=== PATIENT | male | born 1970 | race Two or more races ===

== ENCOUNTER 2020-01-15 08:45 | Inpatient (IN) | payer MEDICARE, MEDICAID ==
[~2020-01-15] VITALS: Ht 182.9 cm; Wt 134.3 kg
[~2020-01-15 08:45] MED LIST: AMPYRA10 MG PO; BACLOFEN10 MG ORAL; DETROL LA4 MG ORAL; GABAPENTIN600 MG ORAL; HYDROCODON-ACE1 EA13; LIPITOR20 MG ORAL; LYRICA50 MG; METHENAMINE HIPP1 GM; NEURONTIN600 MG; OMEPRAZOLE20 M2; UNOBMED
[2020-01-15] MEDS ORDERED: SODIUM CHLORIDE IVLG ONE (09:00)
--- NOTE | 2020-01-15 09:01 | Emergency Room Report ---
History of Present Illness General Chief Complaint: Pain Source: Medical Record Present Illness HPI Disclaimer: Please note that this report is being documented using [employer] technology. This can lead to erroneous entry secondary to incorrect interpretation by the dictating instrument. HPI: 49-year-old male presented by EMS from [facility] due to a fall from a commode. Apparently patient was attempting to use a commode fell to the floor complaining of pain in the left hip. He does have a chronic indwelling Valadez catheter that was pulled at the time of the fall. He denies any nausea vomiting or fevers. Patient was tachycardic on arrival. Patient states he has been unable to eat for the past 2 days. Also complaining of muscle spasm in his upper extremity for the past 24 hours. Denies cough. Denies recent admission to the hospital. PMH: Multiple sclerosis PSH: Reviewed Social Hx: Currently lives in a assisted living Allergies: Coded Allergies: PENICILLINS (Verified Allergy, Severe, Rash, 03/29/14) SULFA (SULFONAMIDE ANTIBIOTICS) (Unverified Allergy, Intermediate, 03/30/14 ) VANCOMYCIN (Verified Allergy, Intermediate, 03/30/14) Nursing Documentation-PMH Past Medical History: No History, Except For Hx Cardiac Problems: No Hx Hypertension: Yes - multiple sclerosis, nystagmus Hx Cancer: No Hx Gastrointestinal Problems: No Hx Multiple Sclerosis: Yes Review of Systems All Other Systems: negative except mentioned in HPI Physical Exam Vital Signs Date Time Temp Pulse Resp B/P (MAP) Pulse Ox O2 Delivery O2 Flow Rate FiO2 01/15/20 08:45 98.2 142 18 135/90 (105) 99 Room Air Sp02 EP Interpretation: reviewed, normal General Appearance: well appearing, no apparent distress Head: normocephalic, atraumatic Eyes: bilateral eye PERRL, bilateral eye EOMI ENT: hearing grossly normal, moist mucus membranes Neck: full range of motion, supple Respiratory: lungs clear, normal breath sounds, no rhonchi, no respiratory distress, no retraction, no wheezing Cardiovascular #1: normal peripheral pulses, no murmur, other - Tachycardic with regular rhythm Gastrointestinal: non tender, soft, non-distended, no guarding Genitourinary: other - Valadez catheter in place with bloody output Neurologic: alert, oriented x3, other - Bilateral upper extremities contracted Skin: normal color, warm/dry Procedures Critical Care Time Critical Care Time Critical care time is made on the patient due to presentation with tachycardia, dehydration, possible sepsis requiring my acute intervention. Critical care time is approximately 35 minutes and excludes procedures Medical Decision Making ER Course Patient presented from halfway facility due to generalized weakness. He reported a fall from his bedside commode. Had no head trauma. He states he had been unable to eat for the past 2 days. He did appear dehydrated on exam. My differential included but not limited to UTI, sepsis, viral syndrome, dehydration, to name a few. On exam patient was tachycardic to the 160s. Initial EKG did appear to be sinus tachycardia. He was febrile on arrival. Patient given Tylenol, ibuprofen and cooling measures. Lactate returned elevated. Urinalysis with blood. Blood cultures were sent. Chest x-ray showed no obvious infiltrate. Broad-spectrum antibiotics were given. Patient' s tachycardia improved in the ER with IV fluids and antipyretics. He was feeling improved. Still tachycardic at time of admission and patient did require admission to telemetry for further observation and work-up. I did not find a specific source for the patient's fever in the ER. EXAM: XR Chest, 1 View CLINICAL HISTORY: PAIN TECHNIQUE: Frontal view of the chest. COMPARISON: Chest x-ray 03/29/14 FINDINGS: Lungs: Hypoventilatory lungs. Bibasilar lung atelectasis. Pleural space: Unremarkable. No pneumothorax. Heart: Unremarkable. No cardiomegaly. Mediastinum: Unremarkable. Bones/joints: Unremarkable. IMPRESSION: Hypoventilatory lungs. Bibasilar lung atelectasis. Laboratory Tests Test 01/15/20 08:25 01/15/20 09:10 01/15/20 11:00 01/15/20 11:50 Urine Color Red Urine Appearance Cloudy Urine pH 6.5 (4.5-8.0) Urine Specific [place] 1.010 (1.005-1.035) Urine Protein 4+ (NEGATIVE) H Urine Glucose (UA) Negative (NEGATIVE) Urine Ketones 1+ (NEGATIVE) H Urine Blood 5+ (NEGATIVE) H Urine Nitrite Negative (NEGATIVE) Urine Bilirubin Negative (NEGATIVE) Urine Urobilinogen Normal MG/DL (0.0-1.0) Urine Leukocyte Esterase Negative (NEGATIVE) Urine RBC Tntc /HPF (0 - 0) H Urine WBC 0-2 /HPF (0 - 0) Urine Squamous Epithelial Cells None /LPF (NONE/OCC) Urine Bacteria Few /HPF (NONE) White Blood Count 2.1 K/UL (4.8-10.8) *L Red Blood Count 5.57 M/UL (4.70-6.10) Hemoglobin 16.7 G/DL (14.2-18.0) Hematocrit 48.8 % (42.0-52.0) Mean Corpuscular Volume 88 FL (80-99) Mean Corpuscular Hemoglobin 30.0 PG (27.0-31.0) Mean Corpuscular Hemoglobin Concent 34.3 G/DL (32.0-36.0) Red Cell Distribution Width 11.9 % (11.6-14.8) Platelet Count 214 K/UL (150-450) Mean Platelet Volume 6.0 FL (6.5-10.1) L Neutrophils (%) (Auto) % (45.0-75.0) Lymphocytes (%) (Auto) % (20.0-45.0) Monocytes (%) (Auto) % (1.0-10.0) Eosinophils (%) (Auto) % (0.0-3.0) Basophils (%) (Auto) % (0.0-2.0) Differential Total Cells Counted 100 Neutrophils % (Manual) 42 % (45-75) L Lymphocytes % (Manual) 52 % (20-45) H Monocytes % (Manual) 6 % (1-10) Eosinophils % (Manual) 0 % (0-3) Basophils % (Manual) 0 % (0-2) Band Neutrophils 0 % (0-8) Platelet Estimate Adequate Platelet Morphology Normal Red Blood Cell Morphology Normal Sodium Level 139 MMOL/L (136-145) Potassium Level 3.4 MMOL/L (3.5-5.1) L Chloride Level 102 MMOL/L (98-107) Carbon Dioxide Level 23 MMOL/L (21-32) Anion Gap 14 mmol/L (5-15) Blood Urea Nitrogen 15 mg/dL (7-18) Creatinine 1.5 MG/DL (0.55-1.30) H Estimate Glomerular Filtration Rate 49.5 mL/min (>60) Glucose Level 97 MG/DL (74-106) Lactic Acid Level 5.30 mmol/L (0.4-2.0) H 2.90 mmol/L (0.66-2.22) H Calcium Level 8.1 MG/DL (8.5-10.1) L Magnesium Level 1.6 MG/DL (1.8-2.4) L Total Bilirubin 0.9 MG/DL (0.2-1.0) Aspartate Amino Transferase (AST) 31 U/L (15-37) Alanine Aminotransferase (ALT) 38 U/L (12-78) Alkaline Phosphatase 118 U/L (46-116) H Total Creatine Kinase 249 U/L (26-308) Troponin I 0.068 ng/mL (0.000-0.056) Total Protein 6.9 G/DL (6.4-8.2) Albumin 2.7 G/DL (3.4-5.0) L Globulin 4.2 g/dL Albumin/Globulin Ratio 0.6 (1.0-2.7) L Test 01/15/20 15:20 Troponin I 0.331 ng/mL (0.000-0.056) Total Protein (PEP) Pending Albumin (PEP) Pending Globulin (PEP) Pending Albumin/Globulin Ratio Pending Pdpxy-7-Jmjpnzpql Pending Lgkzp-7-Bhlhlshqz Pending Beta Globulins Pending Beta Gamma Globulin Pending PEP Abnormal Protein Bands Pending Protein Electrophoresis Interpret Pending HIV (1&2) Antibody Rapid Negative (NEGATIVE) Microbiology Date/Time Source Procedure Growth Status 01/15/20 11:23 Nasal Nares Left - Final Complete 01/15/20 11:23 Nasal Nares Left - Final Complete EKG Diagnostic Results Rate: tachycardiac Other Impression Sinus tachycardia, no ST elevation, Abnormal EKG Last Vital Signs Date Time Temp Pulse Resp B/P (MAP) Pulse Ox O2 Delivery O2 Flow Rate FiO2 01/15/20 08:45 98.2 142 18 135/90 (105) 99 Room Air Status: unchanged Disposition: ADMITTED INPATIENT Condition: Serious Emanuel Llanes M.D. Jan 15, 2020 09:01
[2020-01-15 09:20] VITALS: BP 135/90
[2020-01-15 09:30] LABS: HEMATOCRIT 48.8 % (42.0-52.0); HEMOGLOBIN 16.7 G/DL (14.2-18.0); MEAN CORPUSCULAR VOLUME 88 FL (80-99); PLATELET COUNT 214 K/UL (150-450); RED BLOOD COUNT 5.57 M/UL (4.70-6.10); RED CELL DISTRIBUTION WIDTH 11.9 % (11.6-14.8)
[2020-01-15 09:40] LABS: WHITE BLOOD COUNT 2.1 K/UL (4.8-10.8)
[2020-01-15 09:59] LABS: APPEARANCE,URINE CLOUDY; BILIRUBIN, URINE NEGATIVE (NEGATIVE); COLOR,URINE RED; GLUCOSE, URINE (UA) NEGATIVE (NEGATIVE); KETONES,URINE 1+ (NEGATIVE); LEUKOCYTE ESTERASE ,URINE NEGATIVE (NEGATIVE); NITRITE,URINE NEGATIVE (NEGATIVE); PH,URINE 6.5 (4.5-8.0); PROTEIN,URINE 4+ (NEGATIVE); UROBILINOGEN,URINE NORMAL MG/DL (0.0-1.0)
[2020-01-15] MEDS ORDERED: Acetaminophen 500mg (ES) tab ORAL ONE (10:00)
--- NOTE | 2020-01-15 10:37 | Diagnostic Imaging Report ---
EXAM: XR Chest, 1 View CLINICAL HISTORY: PAIN TECHNIQUE: Frontal view of the chest. COMPARISON: Chest x-ray 03/29/14 FINDINGS: Lungs: Hypoventilatory lungs. Bibasilar lung atelectasis. Pleural space: Unremarkable. No pneumothorax. Heart: Unremarkable. No cardiomegaly. Mediastinum: Unremarkable. Bones/joints: Unremarkable. IMPRESSION: Hypoventilatory lungs. Bibasilar lung atelectasis.
[2020-01-15 11:42] LABS: ANION GAP 14 mmol/L (5-15); BLOOD UREA NITROGEN 15 mg/dL (7-18); CALCIUM 8.1 MG/DL (8.5-10.1); CARBON DIOXIDE 23 MMOL/L (21-32); CHLORIDE 102 MMOL/L (98-107); CREATININE 1.5 MG/DL (0.55-1.30); POTASSIUM 3.4 MMOL/L (3.5-5.1); SODIUM 139 MMOL/L (136-145)
[2020-01-15 11:48] LABS: ALANINE AMINOTRANSFERASE 38 U/L (12-78); ALBUMIN 2.7 G/DL (3.4-5.0); ALBUMIN/GLOBULIN RATIO 0.6 (1.0-2.7); ALKALINE PHOSPHATASE 118 U/L (46-116); ASPARTATE AMINO TRANSFERASE 31 U/L (15-37); BILIRUBIN,TOTAL 0.9 MG/DL (0.2-1.0); CREATINE KINASE 249 U/L (26-308)
[2020-01-15] MEDS ORDERED: Cefepime HCl 1 GM in D5W 55 ML IVPB ONE (12:15)
[2020-01-15] MEDS ORDERED: Aspirin Baby 81mg NG SCH (13:00)
[2020-01-15] MEDS: Lyrica 25mg cap ORAL SCH (18:18)
[2020-01-15 20:00] VITALS: BP 108/58
[2020-01-16] VITALS: BP 102/63
[2020-01-16] MEDS: Cefepime HCl 1 GM in D5W 55 ML IVPB SCH ×3 (00:10→23:04)
[2020-01-16 04:00] VITALS: BP 110/70
--- NOTE | 2020-01-16 05:30 | History and Physical Report ---
DATE OF ADMISSION: 01/15/2020 HISTORY OF PRESENT ILLNESS: The patient is coming here and admitted for leukopenia, azotemia, borderline elevated troponin, fever, dehydration, and rule out sepsis. He apparently has history of multiple sclerosis, presented with fever and tachycardia. Antibiotics were given in the ER. The patient fell from his scooter, was feeling weak and pain in the thighs and also has chronic back pain. Denies nausea, vomiting, or diarrhea. Denies cough. Denies shortness of breath. PAST MEDICAL HISTORY: Significant for multiple sclerosis, urinary incontinence, history of hepatic hemangioma, fatty liver, history of thrombocytopenia, and history of chronic back pain. PAST SURGICAL HISTORY: Abdominal surgery. SOCIAL HISTORY: History of smoking. History of alcohol abuse. Denies history of drug abuse. ALLERGIES: Sulfa and penicillin. MEDICATIONS: Ampyra, baclofen, gabapentin, Lyrica, and Detrol LA. FAMILY HISTORY: Noncontributory. REVIEW OF SYSTEMS: HEENT: Denies headaches. RESPIRATORY: Denies shortness of breath. Denies cough. CARDIOVASCULAR: Denies chest pain. Denies orthopnea. Extensive worse chronic back pain. GASTROINTESTINAL: Denies abdominal pain. Denies nausea, vomiting, or diarrhea. EXTREMITIES: Reports thigh pain and bilateral lower extremity pain. CENTRAL NERVOUS SYSTEM: Denies change in speech pattern. PHYSICAL EXAMINATION: VITAL SIGNS: Temperature is 104 degrees and blood pressure 109/88. HEENT: PERRLA. NECK: Supple. No lymphadenopathy. CHEST: Clear to auscultation. CARDIOVASCULAR: Tachycardiac. GASTROINTESTINAL: Soft, nontender, and nondistended. No organomegaly. EXTREMITIES: No edema. Moves all four extremities. Does have lower extremity edema and lower extremity weakness, which is chronic. Reflexes equal on both sides. LABORATORY DATA: WBC of 2.1, hemoglobin 16.7, and platelets of 214,000. Troponin 0.068. ASSESSMENT AND PLAN: Fever and tachycardia, most likely due to fever, dehydration, rule out sepsis, history of MS, tachycardia, leukopenia, elevated troponin, and azotemia, most likely due to dehydration. I have asked Dr. Casey Roberts as well as Dr. Guillaume, Dr. Sd Ponce, and Dr. Torres to see the patient for the above-mentioned diagnoses and symptoms and abnormalities. We will monitor the patient very closely in the telemetric unit and we will repeat the troponin. Whitney Fontanez M.D. DR: Wen JOB#: [id number] CC:
[2020-01-16 08:00] VITALS: BP 133/64
[2020-01-16 08:05] LABS: HEMATOCRIT 43.7 % (42.0-52.0); HEMOGLOBIN 15.3 G/DL (14.2-18.0); MEAN CORPUSCULAR VOLUME 86 FL (80-99); PLATELET COUNT 164 K/UL (150-450); RED BLOOD COUNT 5.08 M/UL (4.70-6.10); RED CELL DISTRIBUTION WIDTH 11.6 % (11.6-14.8); WHITE BLOOD COUNT 16.8 K/UL (4.8-10.8)
[2020-01-16 08:24] LABS: ANION GAP 13 mmol/L (5-15); BLOOD UREA NITROGEN 13 mg/dL (7-18); CALCIUM 8.6 MG/DL (8.5-10.1); CARBON DIOXIDE 22 MMOL/L (21-32); CHLORIDE 102 MMOL/L (98-107); CREATININE 1.1 MG/DL (0.55-1.30); POTASSIUM 3.6 MMOL/L (3.5-5.1); SODIUM 137 MMOL/L (136-145)
[2020-01-16] MEDS: Lyrica 25mg cap ORAL SCH ×3 (09:35→18:11)
[2020-01-16 10:19] LABS: ALANINE AMINOTRANSFERASE 70 U/L (12-78); ALBUMIN 2.6 G/DL (3.4-5.0); ALKALINE PHOSPHATASE 83 U/L (46-116); ASPARTATE AMINO TRANSFERASE 103 U/L (15-37); BILIRUBIN,DIRECT 0.5 MG/DL (0.0-0.3); BILIRUBIN,TOTAL 1.1 MG/DL (0.2-1.0)
--- NOTE | 2020-01-16 10:54 | General Progress Note ---
Assessment/Plan Problem List: (1) MS (multiple sclerosis) ICD Codes: G35 - MS (multiple sclerosis) SNOMED: 95178541 (2) Leukocytosis ICD Codes: D72.829 - Leukocytosis SNOMED: 414944793 (3) Generalized weakness ICD Codes: R53.1 - Generalized weakness SNOMED: 24281019 (4) Fatty liver ICD Codes: K76.0 - Fatty liver SNOMED: 223166838 (5) Tachycardia ICD Codes: R00.0 - Tachycardia, unspecified SNOMED: 1028949 (6) Severe dehydration ICD Codes: E86.0 - Dehydration SNOMED: 033004692 (7) Cellulitis of left leg ICD Codes: L03.116 - Cellulitis of left leg SNOMED: 873269123 Status: progressing Assessment/Plan: afebrile nac sepsis cellulitis MS reviewed chart and labs Subjective ROS Limited/Unobtainable: Yes Allergies: Coded Allergies: PENICILLINS (Verified Allergy, Severe, Rash, 03/29/14) SULFA (SULFONAMIDE ANTIBIOTICS) (Unverified Allergy, Intermediate, 03/30/14 ) VANCOMYCIN (Verified Allergy, Intermediate, 03/30/14) Objective Last 24 Hour Vital Signs Date Time Temp Pulse Resp B/P (MAP) Pulse Ox O2 Delivery O2 Flow Rate FiO2 01/16/20 08:37 Room Air 01/16/20 08:00 113 01/16/20 04:00 105 01/16/20 03:44 97.0 01/16/20 00:00 110 01/15/20 21:00 Room Air 01/15/20 20:00 104 01/15/20 20:00 97.0 105 17 108/58 (75) 95 01/15/20 16:55 Room Air 01/15/20 15:00 Room Air 01/15/20 13:35 98.0 108 18 109/88 95 Room Air 01/15/20 11:24 104.0 Intake and Output 01/15/20 01/16/20 19:00 07:00 Intake Total 3655 ml 120 ml Output Total 1400 ml 500 ml Balance 2255 ml -380 ml Intake Oral 120 ml IV Total 3655 ml Output Urine Total 1400 ml 500 ml # Bowel Movements 4 2 Laboratory Tests 01/15/20 11:00: Sodium Level 139, Potassium Level 3.4L, Chloride Level 102, Carbon Dioxide Level 23, Anion Gap 14, Blood Urea Nitrogen 15, Creatinine 1.5H, Estimat Glomerular Filtration Rate 49.5, Glucose Level 97, Lactic Acid Level 5.30H, Calcium Level 8.1L, Magnesium Level 1.6L, Total Bilirubin 0.9, Aspartate Amino Transf (AST/SGOT) 31, Alanine Aminotransferase (ALT/SGPT) 38, Alkaline Phosphatase 118H, Total Creatine Kinase 249, Troponin I 0.068H, Total Protein 6.9, Albumin 2.7L, Globulin 4.2, Albumin/Globulin Ratio 0.6L 01/15/20 11:50: Lactic Acid Level 2.90H 01/15/20 15:20: Troponin I 0.331H, Albumin/Globulin Ratio [Pending], Total Protein (PEP) [ Pending], Albumin (PEP) [Pending], Globulin (PEP) [Pending], Eenul-4-Yqamwbdqx [ Pending], Gotfk-5-Fulhvdyjh [Pending], Beta Globulins [Pending], Beta Gamma Globulin [Pending], PEP Abnormal Protein Bands [Pending], Protein Electrophoresis Interpret [Pending], HIV (1&2) Antibody Rapid Negative 01/16/20 06:50: Sodium Level 137, Potassium Level 3.6, Chloride Level 102, Carbon Dioxide Level 22, Anion Gap 13, Blood Urea Nitrogen 13, Creatinine 1.1, Estimat Glomerular Filtration Rate > 60, Glucose Level 87, Calcium Level 8.6, Magnesium Level 1.6L , Total Bilirubin 1.1H, Aspartate Amino Transf (AST/SGOT) 103H, Alanine Aminotransferase (ALT/SGPT) 70, Alkaline Phosphatase 83, Troponin I 0.094H, Total Protein 7.0, Albumin 2.6L, White Blood Count 16.8#H, Red Blood Count 5.08 , Hemoglobin 15.3, Hematocrit 43.7, Mean Corpuscular Volume 86, Mean Corpuscular Hemoglobin 30.1, Mean Corpuscular Hemoglobin Concent 35.0, Red Cell Distribution Width 11.6, Platelet Count 164, Mean Platelet Volume 7.5, Neutrophils (%) (Auto) , Lymphocytes (%) (Auto) , Monocytes (%) (Auto) , Eosinophils (%) (Auto) , Basophils (%) (Auto) , Differential Total Cells Counted 100, Neutrophils % (Manual) 77H, Lymphocytes % (Manual) 4L, Monocytes % (Manual) 5, Eosinophils % (Manual) 0, Basophils % (Manual) 0, Band Neutrophils 14H, Platelet Estimate Adequate, Platelet Morphology Normal, Hemoglobin A1c 5.7 , Uric Acid 8.2H, Phosphorus Level 3.0, Direct Bilirubin 0.5H Height (Feet): 6 Height (Inches): 0.00 Weight (Pounds): 265 Cardiovascular: normal rate Respiratory/Chest: lungs clear Abdomen: soft Whitney Fontanez MD Jan 16, 2020 10:54
--- NOTE | 2020-01-16 11:01 | Diagnostic Imaging Report ---
Indication: Abdominal pain Technique: Grayscale and duplex Doppler imaging of the abdomen performed. Comparison: None Findings: The liver is echogenic. Doppler interrogation of the main portal vein shows patency with hepatopedal, monophasic flow. There is no biliary ductal dilatation identified. Gallstones noted. There is mild pericholecystic fluid. Sonographic Lugo's is negative per technologist. CBD is 4.3 mm. Spleen is borderline enlarged measuring close to 13 cm. There is a echogenic focus measuring 7 mm within the spleen possibly hemangioma.. There demonstrated part of the pancreas, aorta and IVC show no definite abnormalities although largely obscured. Both kidneys appear unremarkable. There is no hydronephrosis. IMPRESSION: Hepatosplenomegaly. Cholelithiasis with minimal pericholecystic fluid. Correlate clinically for cholecystitis. Echogenic focus in the spleen possibly a hemangioma.
--- NOTE | 2020-01-16 11:38 | Cardiac Electrophysiology PN ---
Subjective Subjective [id number] Objective Last 24 Hour Vital Signs Date Time Temp Pulse Resp B/P (MAP) Pulse Ox O2 Delivery O2 Flow Rate FiO2 01/16/20 08:37 Room Air 01/16/20 08:00 113 01/16/20 04:00 105 01/16/20 03:44 97.0 01/16/20 00:00 110 01/15/20 21:00 Room Air 01/15/20 20:00 104 01/15/20 20:00 97.0 105 17 108/58 (75) 95 01/15/20 16:55 Room Air 01/15/20 15:00 Room Air 01/15/20 13:35 98.0 108 18 109/88 95 Room Air Intake and Output 01/15/20 01/16/20 19:00 07:00 Intake Total 3655 ml 120 ml Output Total 1400 ml 500 ml Balance 2255 ml -380 ml Intake Oral 120 ml IV Total 3655 ml Output Urine Total 1400 ml 500 ml # Bowel Movements 4 2 Laboratory Tests Test 01/15/20 11:50 01/15/20 15:20 01/16/20 06:50 Lactic Acid Level 2.90 mmol/L (0.66-2.22) H Troponin I 0.331 ng/mL (0.000-0.056) 0.094 ng/mL (0.000-0.056) Total Protein (PEP) Pending Albumin (PEP) Pending Globulin (PEP) Pending Albumin/Globulin Ratio Pending Qmggb-7-Vnuatwbfv Pending Kfszf-7-Nxbyviozv Pending Beta Globulins Pending Beta Gamma Globulin Pending PEP Abnormal Protein Bands Pending Protein Electrophoresis Interpret Pending HIV (1&2) Antibody Rapid Negative (NEGATIVE) White Blood Count 16.8 K/UL (4.8-10.8) #H Red Blood Count 5.08 M/UL (4.70-6.10) Hemoglobin 15.3 G/DL (14.2-18.0) Hematocrit 43.7 % (42.0-52.0) Mean Corpuscular Volume 86 FL (80-99) Mean Corpuscular Hemoglobin 30.1 PG (27.0-31.0) Mean Corpuscular Hemoglobin Concent 35.0 G/DL (32.0-36.0) Red Cell Distribution Width 11.6 % (11.6-14.8) Platelet Count 164 K/UL (150-450) Mean Platelet Volume 7.5 FL (6.5-10.1) Neutrophils (%) (Auto) % (45.0-75.0) Lymphocytes (%) (Auto) % (20.0-45.0) Monocytes (%) (Auto) % (1.0-10.0) Eosinophils (%) (Auto) % (0.0-3.0) Basophils (%) (Auto) % (0.0-2.0) Differential Total Cells Counted 100 Neutrophils % (Manual) 77 % (45-75) H Lymphocytes % (Manual) 4 % (20-45) L Monocytes % (Manual) 5 % (1-10) Eosinophils % (Manual) 0 % (0-3) Basophils % (Manual) 0 % (0-2) Band Neutrophils 14 % (0-8) H Platelet Estimate Adequate Platelet Morphology Normal Sodium Level 137 MMOL/L (136-145) Potassium Level 3.6 MMOL/L (3.5-5.1) Chloride Level 102 MMOL/L (98-107) Carbon Dioxide Level 22 MMOL/L (21-32) Anion Gap 13 mmol/L (5-15) Blood Urea Nitrogen 13 mg/dL (7-18) Creatinine 1.1 MG/DL (0.55-1.30) Estimat Glomerular Filtration Rate > 60 mL/min (>60) Glucose Level 87 MG/DL (74-106) Hemoglobin A1c 5.7 % (4.3-6.0) Uric Acid 8.2 MG/DL (2.6-7.2) H Calcium Level 8.6 MG/DL (8.5-10.1) Phosphorus Level 3.0 MG/DL (2.5-4.9) Magnesium Level 1.6 MG/DL (1.8-2.4) L Total Bilirubin 1.1 MG/DL (0.2-1.0) H Direct Bilirubin 0.5 MG/DL (0.0-0.3) H Aspartate Amino Transf (AST/SGOT) 103 U/L (15-37) H Alanine Aminotransferase (ALT/SGPT) 70 U/L (12-78) Alkaline Phosphatase 83 U/L (46-116) Total Protein 7.0 G/DL (6.4-8.2) Albumin 2.6 G/DL (3.4-5.0) L Microbiology Date/Time Source Procedure Growth Status 01/15/20 09:10 Blood Blood Culture - Preliminary Resulted 01/15/20 09:10 Blood Blood Culture - Preliminary Resulted 01/15/20 11:23 Nasal Nares Left - Final Complete 01/15/20 11:23 Nasal Nares Left - Final Complete 01/15/20 11:26 Rectum Received Delonte Torres MD Jan 16, 2020 11:38
[2020-01-16 12:00] VITALS: BP 118/68
[2020-01-16] MEDS ORDERED: Levofloxacin 750mg tab ORAL SCH (13:45)
[2020-01-16 16:00] VITALS: BP 102/65
--- NOTE | 2020-01-16 17:15 | Consultation ---
Consult Note Consult Note I was asked to evaluate the patient at the request of Dr. Blackman for proteinuria Patient seen in her room 207 Patient denies any history of kidney problem Reason for referring to emergency room was pain At the emergency room HPI: 49-year-old male presented by EMS from [facility] due to a fall from a commode. Apparently patient was attempting to use a commode fell to the floor complaining of pain in the left hip. He does have a chronic indwelling Valadez catheter that was pulled at the time of the fall. He denies any nausea vomiting or fevers. Patient was tachycardic on arrival. Patient states he has been unable to eat for the past 2 days. Also complaining of muscle spasm in his upper extremity for the past 24 hours. Denies cough. Denies recent admission to the hospital. PMH: Multiple sclerosis Currently lives in a assisted living Allergies: PENICILLINS (Verified Allergy, Severe, Rash, 03/29/14) SULFA (SULFONAMIDE ANTIBIOTICS) (Unverified Allergy, Intermediate, 03/30/14 ) VANCOMYCIN (Verified Allergy, Intermediate, 03/30/14) Past Medical History: No History, Except For Hx Hypertension: Yes - multiple sclerosis, nystagmus Hx Multiple Sclerosis: Yes . Assessment/Plan Proteinuria and hypoalbuminemia , will rule out nephrotic syndrome Obese with BMI of 35.9 Multiple sclerosis Chronic Valadez catheter Multiple drug allergies to vancomycin sulfa and penicillin History of hepatic hemangioma Fatty liver Chronic pain History of thrombocytopenia Elevated troponin I Plan: Obtain 24-hour urine for total protein Correct electrolytes Per cardiology advice Monitor liver function tests, TSH Per orders Tom Guillaume MD Jan 16, 2020 17:15
[2020-01-16] MEDS: Aspirin Baby 81mg ORAL SCH (17:30)
[2020-01-16] MEDS: Docusate 100mg cap ORAL SCH (18:11)
[2020-01-16] MEDS ORDERED: Docusate 100mg cap ORAL SCH (19:45)
[2020-01-16 20:00] VITALS: BP 111/79
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
[2020-01-16] MEDS: Atorvastatin 20mg tab ORAL SCH (21:07)
[2020-01-16] MEDS: Bisacodyl EC 5mg tab ORAL SCH (21:07)
[2020-01-16] MEDS: Metoprolol Tartrate 12.5mg TAB ORAL SCH (21:08)
--- NOTE | 2020-01-16 22:15 | Consultation ---
DATE OF CONSULTATION: 01/16/2020 INFECTIOUS DISEASE CONSULTATION CONSULTING PHYSICIAN: Sd Ponce M.D. PRIMARY ATTENDING PHYSICIAN: Whitney Fontanez M.D. REASON FOR CONSULTATION: Gram-negative sepsis. HISTORY OF PRESENT ILLNESS: This is a 49-year-old white male admitted yesterday from home. According to ER doctor, had a fall from bedside commode, had left hip pain. He had a Valadez catheter placement. Valadez catheter came out when the patient fell. He was tachycardic, had decrease in white cell count and leukopenia. Recently, he had decreased appetite in the last two days. He had a temperature of 104, tachycardia with heart rate up to 150. PAST MEDICAL HISTORY: Multiple sclerosis. The patient is wheelchair bound, has weakness in the lower extremity and right upper extremity, and obesity. PAST SURGICAL HISTORY: Has a history of abdominal surgery many years ago. ALLERGIES: Allergic to sulfa and vancomycin. Although it is written in the patient's chart the patient is allergic to penicillin, denies allergy to penicillin. MEDICATIONS: Metoprolol, atorvastatin, cefepime, gabapentin, Lyrica, Tylenol. SOCIAL HISTORY: Lives at home. Single. Denies alcohol and denies smoking and drug abuse. He has a history of alcohol abuse. REVIEW OF SYSTEMS: No fever, no chills today. No coughing. No shortness of breath. Had pain in the right foot. PHYSICAL EXAMINATION: VITAL SIGNS: Temperature 97, pulse 113, blood pressure is 108/58. GENERAL APPEARANCE: Obese, no acute distress. HEAD AND NECK: [place] conjunctivae. HEART: Tachycardic. LUNGS: Clear. ABDOMEN: Soft. GENITOURINARY: Had Valadez catheter. EXTREMITIES: Have mild periankle edema, has footdrop. SKIN: Has some bruise in the right foot. No open wound. LABORATORY AND DIAGNOSTIC DATA: WBC today 16.8, hemoglobin 15.3, hematocrit 43.7, and platelets is 164,000. Lactic acid is 2.9. Sodium 139, potassium 3.4, chloride 102, bicarbonate 23, BUN 15, creatinine 1.5 at the time of admission and today is 1.1. Troponin was elevated, the highest level was 0.31. Abdominal ultrasound showed hepatosplenomegaly, cholelithiasis with pericholecystic fluid correlates for cholecystitis. Echogenic focus in the spleen, possibly an hemangioma. Chest x-ray, hypoventilatory bibasilar lung atelectasis. Urine rbc's too numerous to count. Blood culture x2, gram-negative rods. Influenza A and B were negative. IMPRESSION: Gram-negative sepsis, may have UTI. Has cholelithiasis, we will try to rule out cholecystitis and acute renal failure that is improving. Multiple sclerosis, hepatosplenomegaly. He had elevated troponin. RECOMMENDATION: Continue cefepime, give a dose of Levaquin. We will follow up the cultures. At the end of my exam, I thank Dr. Fontanez for involving me in the care of this patient. Sd Ponce M.D. DR: DAVID JOB#: [id number] CC: [email or web address]
[2020-01-17] VITALS: BP 106/64
[2020-01-17 04:00] VITALS: BP 116/68
--- NOTE | 2020-01-17 06:21 | Hematology/Onc Progress Note ---
Assessment/Plan Assessment/Plan Assessment/Plan # Leukopenia -- multiple etiologies could be related to underlying liver disease , medication-induced, infection versus viral syndrome --> peripheral smear has been ordered and does not show significant abnormalities --> Medications have been reviewed --> Continue to monitor for improvement, trend cbc --> Hep panel and HIV have been ordered--> NEG --> US abd ordered to r/o cirrhosis and hepatosplenomegaly --> shows hsm --> reverse isolation if ANC is <2000 --> Give neupogen if ANC <1000 (WAS GIVEN x1 dose) # History of thrombocytopenia --> now has improved, plt is at nml range # Proteinuria and hypoalbuminemia , will rule out nephrotic syndrome --> per cards # Obese with BMI of 35.9 --> recommend lifestyle changes # Multiple sclerosis --> as per neuro # Elevated trop --> downtrended --> as per cards # Chronic Valadez catheter # Multiple drug allergies to vancomycin sulfa and penicillin # History of hepatic hemangioma # Fatty liver # Chronic pain The timing of this note does not necessarily reflect the time of the patient was seen. Greatly appreciate consultation. Subjective Constitutional: Denies: no symptoms, chills, fever, malaise, weakness, other HEENT: Denies: no symptoms, eye pain, blurred vision, tearing, double vision, ear pain, ear discharge, nose pain, nose congestion, throat pain, throat swelling, mouth pain, mouth swelling, other Cardiovascular: Denies: no symptoms, chest pain, edema, irregular heart rate, lightheadedness, palpitations, syncope, other Respiratory: Denies: no symptoms, cough, shortness of breath, SOB with excertion, SOB at rest, sputum, wheezing, other Gastrointestinal/Abdominal: Denies: no symptoms, abdomen distended, abdominal pain, black stools, tarry stools, blood in stool, constipated, diarrhea, difficulty swallowing, nausea, poor appetite, poor fluid intake, rectal bleeding , vomiting, other Genitourinary: Denies: no symptoms, burning, discharge, frequency, flank pain, hematuria, incontinence, pain, urgency, other Endocrine: Denies: no symptoms, excessive sweating, flushing, intolerance to cold, intolerance to heat, increased hunger, increased thirst, increased urine, unexplained weight gain, unexplained weight loss, other Hematologic/Lymphatic: Denies: no symptoms, anemia, easy bleeding, easy bruising, adenopathy, other Allergies: Coded Allergies: PENICILLINS (Verified Allergy, Severe, Rash, 03/29/14) SULFA (SULFONAMIDE ANTIBIOTICS) (Unverified Allergy, Intermediate, 03/30/14 ) VANCOMYCIN (Verified Allergy, Intermediate, 03/30/14) Subjective 01/16: no events, labs noted, no bleeding or chills, trop downtrending, cbc pending Objective Objective Current Medications Medications (Trade) Dose Ordered Sig/Vicky Route PRN Reason Start Time Stop Time Status Last Admin Dose Admin Acetaminophen (Tylenol) 650 mg Q4H PRN ORAL Mild Pain/Temp > 100.5 01/15/20 14:00 02/14/20 13:59 01/16/20 03:14 Aspirin (ASA) 81 mg DAILY ORAL 01/16/20 17:30 03/01/20 17:29 01/16/20 17:30 Atorvastatin Calcium (Lipitor) 20 mg BEDTIME ORAL 01/16/20 21:00 02/15/20 20:59 01/16/20 21:07 Baclofen (Lioresal) 10 mg THREE TIMES A DAY ORAL 01/15/20 18:00 02/14/20 17:59 01/16/20 18:11 Bisacodyl (Dulcolax) 10 mg DAILY ORAL 01/16/20 20:00 02/15/20 19:59 01/16/20 21:07 Cefepime HCl 1 gm/ Dextrose 55 ml @ 110 mls/hr Q12H IVPB 01/16/20 00:00 01/23/20 00:00 01/16/20 23:04 Docusate Sodium (Colace) 100 mg THREE TIMES A DAY ORAL 01/16/20 18:00 02/15/20 17:59 01/16/20 18:11 Gabapentin (Neurontin) 600 mg THREE TIMES A DAY ORAL 01/15/20 18:00 02/14/20 17:59 01/16/20 18:11 Metoprolol Tartrate (Lopressor) 12.5 mg Q12HR ORAL 01/16/20 21:00 02/15/20 20:59 01/16/20 21:08 Pantoprazole (Protonix) 40 mg EVERY 12 HOURS ORAL 3/9/20 21:00 02/15/20 20:59 01/16/20 21:07 Pregabalin (Lyrica) 25 mg THREE TIMES A DAY ORAL 01/15/20 18:00 02/14/20 17:59 01/16/20 18:11 Sennosides (Senokot) 8.6 mg DAILY ORAL 01/17/20 09:00 02/16/20 08:59 Last 24 Hour Vital Signs Date Time Temp Pulse Resp B/P (MAP) Pulse Ox O2 Delivery O2 Flow Rate FiO2 01/17/20 04:00 98.2 111 20 116/68 (84) 94 01/17/20 04:00 109 01/17/20 00:00 99 01/17/20 00:00 98.4 103 20 106/64 (78) 94 01/16/20 21:08 113 111/79 01/16/20 21:00 Room Air 01/16/20 20:00 116 01/16/20 20:00 98.8 113 20 111/79 (90) 94 01/16/20 16:00 114 01/16/20 16:00 97.5 115 20 102/65 (77) 95 01/16/20 12:00 113 01/16/20 12:00 97.9 107 20 118/68 (85) 95 01/16/20 08:37 Room Air 01/16/20 08:00 113 01/16/20 08:00 97.3 107 20 133/64 (87) 93 01/16/20 04:00 105 01/16/20 04:00 97.5 105 18 110/70 (83) 95 01/16/20 03:44 97.0 01/16/20 00:00 97.7 109 18 102/63 (76) 93 01/16/20 00:00 110 01/15/20 21:00 Room Air 01/15/20 20:00 104 01/15/20 20:00 97.0 105 17 108/58 (75) 95 01/15/20 16:55 Room Air 01/15/20 15:00 Room Air 01/15/20 13:35 98.0 108 18 109/88 95 Room Air 01/15/20 11:24 104.0 01/15/20 10:35 104.0 01/15/20 09:21 150 18 Room Air 01/15/20 09:20 98.2 150 18 135/90 99 Room Air 01/15/20 08:45 98.2 142 18 135/90 (105) 99 Room Air Intake and Output 01/16/20 01/17/20 19:00 07:00 Intake Total 880 ml Output Total 1900 ml Balance -1020 ml Intake Oral 880 ml Output Urine Total 1900 ml # Bowel Movements 2 1 Labs Test 01/15/20 08:25 01/15/20 09:10 01/15/20 11:00 01/15/20 11:50 Urine Color Red Urine Appearance Cloudy Urine pH 6.5 (4.5-8.0) Urine Specific [place] 1.010 (1.005-1.035) Urine Protein 4+ (NEGATIVE) Urine Glucose (UA) Negative (NEGATIVE) Urine Ketones 1+ (NEGATIVE) Urine Blood 5+ (NEGATIVE) Urine Nitrite Negative (NEGATIVE) Urine Bilirubin Negative (NEGATIVE) Urine Urobilinogen Normal MG/DL (0.0-1.0) Urine Leukocyte Esterase Negative (NEGATIVE) Urine RBC Tntc /HPF (0 - 0) Urine WBC 0-2 /HPF (0 - 0) Urine Squamous Epithelial Cells None /LPF (NONE/OCC) Urine Bacteria Few /HPF (NONE) White Blood Count 2.1 K/UL (4.8-10.8) Red Blood Count 5.57 M/UL (4.70-6.10) Hemoglobin 16.7 G/DL (14.2-18.0) Hematocrit 48.8 % (42.0-52.0) Mean Corpuscular Volume 88 FL (80-99) Mean Corpuscular Hemoglobin 30.0 PG (27.0-31.0) Mean Corpuscular Hemoglobin Concent 34.3 G/DL (32.0-36.0) Red Cell Distribution Width 11.9 % (11.6-14.8) Platelet Count 214 K/UL (150-450) Mean Platelet Volume 6.0 FL (6.5-10.1) Neutrophils (%) (Auto) % (45.0-75.0) Lymphocytes (%) (Auto) % (20.0-45.0) Monocytes (%) (Auto) % (1.0-10.0) Eosinophils (%) (Auto) % (0.0-3.0) Basophils (%) (Auto) % (0.0-2.0) Differential Total Cells Counted 100 Neutrophils % (Manual) 42 % (45-75) Lymphocytes % (Manual) 52 % (20-45) Monocytes % (Manual) 6 % (1-10) Eosinophils % (Manual) 0 % (0-3) Basophils % (Manual) 0 % (0-2) Band Neutrophils 0 % (0-8) Platelet Estimate Adequate Platelet Morphology Normal Red Blood Cell Morphology Normal Sodium Level 139 MMOL/L (136-145) Potassium Level 3.4 MMOL/L (3.5-5.1) Chloride Level 102 MMOL/L (98-107) Carbon Dioxide Level 23 MMOL/L (21-32) Anion Gap 14 mmol/L (5-15) Blood Urea Nitrogen 15 mg/dL (7-18) Creatinine 1.5 MG/DL (0.55-1.30) Estimat Glomerular Filtration Rate 49.5 mL/min (>60) Glucose Level 97 MG/DL (74-106) Lactic Acid Level 5.30 mmol/L (0.4-2.0) 2.90 mmol/L (0.66-2.22) Calcium Level 8.1 MG/DL (8.5-10.1) Magnesium Level 1.6 MG/DL (1.8-2.4) Total Bilirubin 0.9 MG/DL (0.2-1.0) Aspartate Amino Transf (AST/SGOT) 31 U/L (15-37) Alanine Aminotransferase (ALT/SGPT) 38 U/L (12-78) Alkaline Phosphatase 118 U/L (46-116) Total Creatine Kinase 249 U/L (26-308) Troponin I 0.068 ng/mL (0.000-0.056) Total Protein 6.9 G/DL (6.4-8.2) Albumin 2.7 G/DL (3.4-5.0) Globulin 4.2 g/dL Albumin/Globulin Ratio 0.6 (1.0-2.7) Test 01/15/20 15:20 01/16/20 06:50 01/16/20 15:45 Troponin I 0.331 ng/mL (0.000-0.056) 0.094 ng/mL (0.000-0.056) HIV (1&2) Antibody Rapid Negative (NEGATIVE) White Blood Count 16.8 K/UL (4.8-10.8) Red Blood Count 5.08 M/UL (4.70-6.10) Hemoglobin 15.3 G/DL (14.2-18.0) Hematocrit 43.7 % (42.0-52.0) Mean Corpuscular Volume 86 FL (80-99) Mean Corpuscular Hemoglobin 30.1 PG (27.0-31.0) Mean Corpuscular Hemoglobin Concent 35.0 G/DL (32.0-36.0) Red Cell Distribution Width 11.6 % (11.6-14.8) Platelet Count 164 K/UL (150-450) Mean Platelet Volume 7.5 FL (6.5-10.1) Neutrophils (%) (Auto) % (45.0-75.0) Lymphocytes (%) (Auto) % (20.0-45.0) Monocytes (%) (Auto) % (1.0-10.0) Eosinophils (%) (Auto) % (0.0-3.0) Basophils (%) (Auto) % (0.0-2.0) Differential Total Cells Counted 100 Neutrophils % (Manual) 77 % (45-75) Lymphocytes % (Manual) 4 % (20-45) Monocytes % (Manual) 5 % (1-10) Eosinophils % (Manual) 0 % (0-3) Basophils % (Manual) 0 % (0-2) Band Neutrophils 14 % (0-8) Platelet Estimate Adequate Platelet Morphology Normal Sodium Level 137 MMOL/L (136-145) Potassium Level 3.6 MMOL/L (3.5-5.1) Chloride Level 102 MMOL/L (98-107) Carbon Dioxide Level 22 MMOL/L (21-32) Anion Gap 13 mmol/L (5-15) Blood Urea Nitrogen 13 mg/dL (7-18) Creatinine 1.1 MG/DL (0.55-1.30) Estimat Glomerular Filtration Rate > 60 mL/min (>60) Glucose Level 87 MG/DL (74-106) Hemoglobin A1c 5.7 % (4.3-6.0) Uric Acid 8.2 MG/DL (2.6-7.2) Calcium Level 8.6 MG/DL (8.5-10.1) Phosphorus Level 3.0 MG/DL (2.5-4.9) Magnesium Level 1.6 MG/DL (1.8-2.4) Total Bilirubin 1.1 MG/DL (0.2-1.0) Direct Bilirubin 0.5 MG/DL (0.0-0.3) Aspartate Amino Transf (AST/SGOT) 103 U/L (15-37) Alanine Aminotransferase (ALT/SGPT) 70 U/L (12-78) Alkaline Phosphatase 83 U/L (46-116) Total Protein 7.0 G/DL (6.4-8.2) Albumin 2.6 G/DL (3.4-5.0) Urine Opiates Screen Negative (NEGATIVE) Urine Barbiturates Screen Negative (NEGATIVE) Phencyclidine (PCP) Screen Negative (NEGATIVE) Urine Amphetamines Screen Negative (NEGATIVE) Urine Benzodiazepines Screen Negative (NEGATIVE) Urine Cocaine Screen Negative (NEGATIVE) Urine Marijuana (THC) Screen Negative (NEGATIVE) Height (Feet): 6 Height (Inches): 0.00 Weight (Pounds): 265 Objective Physical Exam: Vitals: reviewed General: NAD HEENT: nc, at Neck: supple Chest: clear breath sounds bilaterally Cardiovascular: RRR, no s3, s4 Abdomen: soft, nontender, nd Extremities: no cce, normal range of motion, upper ext contracted Neuro: alert and oriented Casey Roberts MD Jan 17, 2020 06:21
[2020-01-17 07:24] LABS: HEMATOCRIT 42.5 % (42.0-52.0); HEMOGLOBIN 14.9 G/DL (14.2-18.0); MEAN CORPUSCULAR VOLUME 86 FL (80-99); PLATELET COUNT 151 K/UL (150-450); RED BLOOD COUNT 4.92 M/UL (4.70-6.10); RED CELL DISTRIBUTION WIDTH 11.8 % (11.6-14.8); WHITE BLOOD COUNT 17.3 K/UL (4.8-10.8)
--- NOTE | 2020-01-17 07:30 | Consultation ---
DATE OF CONSULTATION: 01/16/2020 CARDIOLOGY CONSULTATION CONSULTING PHYSICIAN: Delonte Torres M.D. REFERRING PHYSICIAN: Whitney Fontanez M.D. REASON FOR CONSULTATION: Questionable syncope in a patient with hypertension and multiple sclerosis. HISTORY OF PRESENT ILLNESS: The patient is a 49-year-old gentleman with history of hypertension and multiple sclerosis, was brought in from [facility] after he had a fall from the commode. The patient apparently was trying to use the commode and fell to the floor complaining of pain in the left hip. He has a chronic indwelling catheter that was pulled at the time of fall and had some hematuria. The patient was tachycardic on arrival to the emergency room. Cardiology consultation was requested for further evaluation and management. His 12-lead EKG showed tachycardia at 146 beats per minute. REVIEW OF SYSTEMS: Negative other than what was mentioned in the history of present illness. PAST MEDICAL HISTORY: As mentioned above. FAMILY HISTORY: Noncontributory. SOCIAL HISTORY: He lives in a [employer] [facility]. Does not smoke or drink alcohol. PHYSICAL EXAMINATION: VITAL SIGNS: Showed blood pressure of 110/58, pulse 105, respirations 18, and temperature 97. Initial temperature was 104. HEAD AND NECK: Showed no JVD. LUNGS: Clear. CARDIOVASCULAR: Shows regular S1 and S2 with no gallop or murmur. ABDOMEN: Soft. EXTREMITIES: 1+ pitting edema. His right arm is paralyzed. LABORATORY AND DIAGNOSTIC DATA: His labs show initial white count was 2.1, today is 16.8; hemoglobin 15.3; hematocrit of 43; and platelet count 164,000. Sodium 137, potassium 3.6, BUN 13, creatinine 1.1, and glucose of 87. His troponin was 0.08, then increased to 0.331, and then down to 0.094. His EKG showed sinus rhythm with nonspecific ST-T wave abnormality. ASSESSMENT AND PLAN: 1. Non-ST elevation myocardial infarction with three elevated troponins. Repeat troponin was 0.3, and it has come down to 0.094. The patient currently does not have any chest pain. We will treat him medically, put him on aspirin, metoprolol, and statin. We will get an echocardiogram, repeat EKG and troponin in the morning. 2. History of hypertension. Start on low-dose beta jonathan. 02:53 elevated troponin. 3. Multiple sclerosis. 4. Leukocytosis. 5. Left leg cellulitis. Thank you very much, Dr. Fontanez, for allowing me to participate in the care of this patient. Please do not hesitate to contact me for any questions regarding my evaluation. Delonte Torres M.D. DR: JEANNIE JOB#: [id number] CC:
[2020-01-17 07:55] LABS: ALANINE AMINOTRANSFERASE 66 U/L (12-78); ALBUMIN 2.6 G/DL (3.4-5.0); ALBUMIN/GLOBULIN RATIO 0.7 (1.0-2.7); ALKALINE PHOSPHATASE 95 U/L (46-116); ANION GAP 13 mmol/L (5-15); ASPARTATE AMINO TRANSFERASE 86 U/L (15-37); BILIRUBIN,TOTAL 1.1 MG/DL (0.2-1.0); BLOOD UREA NITROGEN 10 mg/dL (7-18); CALCIUM 8.7 MG/DL (8.5-10.1); CARBON DIOXIDE 23 MMOL/L (21-32); CHLORIDE 102 MMOL/L (98-107); CHOLESTEROL 164 MG/DL (< 200); CREATININE 0.9 MG/DL (0.55-1.30); HDL CHOLESTEROL 28 MG/DL (40-60); POTASSIUM 3.3 MMOL/L (3.5-5.1); SODIUM 138 MMOL/L (136-145); TRIGLYCERIDES 177 MG/DL (30-150)
[2020-01-17 07:57] LABS: BILIRUBIN,DIRECT 0.6 MG/DL (0.0-0.3)
[2020-01-17 08:00] VITALS: BP 114/45
[2020-01-17 08:10] LABS: PHOSPHORUS 2.4 MG/DL (2.5-4.9)
[2020-01-17] MEDS: Metoprolol Tartrate 12.5mg TAB ORAL SCH ×2 (09:16→20:57)
[2020-01-17] MEDS: Docusate 100mg cap ORAL SCH ×3 (09:16→17:54)
[2020-01-17] MEDS: Sennosides 8.6mg tab ORAL SCH (09:16)
[2020-01-17] MEDS: Aspirin Baby 81mg ORAL SCH (09:16)
[2020-01-17] MEDS: Bisacodyl EC 5mg tab ORAL SCH (09:20)
[2020-01-17] MEDS: Lyrica 25mg cap ORAL SCH ×3 (09:21→17:46)
[2020-01-17] MEDS: Enoxaparin 40mg Inj SUBQ SCH (09:23)
--- NOTE | 2020-01-17 10:57 | Cardiac Electrophysiology PN ---
Assessment/Plan Assessment/Plan 1. Non-ST elevation myocardial infarction with three elevated troponins. Likeley demand ischemia Repeat troponin was 0.3, and it has come down to 0.094. Denies any chest pain. Continue aspirin, metoprolol 12.5 bid, and statin. Echo EF 65%. Troponin this am negative 2. History of hypertension. 3. Multiple sclerosis. 4. Leukocytosis. on iv Abx per ID 5. Left leg cellulitis. DW RN Subjective Subjective Alert in NAD. No CP Objective Last 24 Hour Vital Signs Date Time Temp Pulse Resp B/P (MAP) Pulse Ox O2 Delivery O2 Flow Rate FiO2 01/17/20 09:16 103 114/45 01/17/20 08:30 Room Air 01/17/20 08:00 99.1 103 20 114/45 (68) 96 01/17/20 04:00 98.2 111 20 116/68 (84) 94 01/17/20 04:00 109 01/17/20 00:00 99 01/17/20 00:00 98.4 103 20 106/64 (78) 94 01/16/20 21:08 113 111/79 01/16/20 21:00 Room Air 01/16/20 20:00 116 01/16/20 20:00 98.8 113 20 111/79 (90) 94 01/16/20 16:00 114 01/16/20 16:00 97.5 115 20 102/65 (77) 95 01/16/20 12:00 113 01/16/20 12:00 97.9 107 20 118/68 (85) 95 Intake and Output 01/16/20 01/17/20 19:00 07:00 Intake Total 880 ml 120 ml Output Total 1900 ml Balance -1020 ml 120 ml Intake Oral 880 ml 120 ml Output Urine Total 1900 ml # Bowel Movements 2 1 Laboratory Tests Test 01/16/20 15:45 01/17/20 05:44 Urine Opiates Screen Negative (NEGATIVE) Urine Barbiturates Screen Negative (NEGATIVE) Phencyclidine (PCP) Screen Negative (NEGATIVE) Urine Amphetamines Screen Negative (NEGATIVE) Urine Benzodiazepines Screen Negative (NEGATIVE) Urine Cocaine Screen Negative (NEGATIVE) Urine Marijuana (THC) Screen Negative (NEGATIVE) White Blood Count 17.3 K/UL (4.8-10.8) H Red Blood Count 4.92 M/UL (4.70-6.10) Hemoglobin 14.9 G/DL (14.2-18.0) Hematocrit 42.5 % (42.0-52.0) Mean Corpuscular Volume 86 FL (80-99) Mean Corpuscular Hemoglobin 30.3 PG (27.0-31.0) Mean Corpuscular Hemoglobin Concent 35.0 G/DL (32.0-36.0) Red Cell Distribution Width 11.8 % (11.6-14.8) Platelet Count 151 K/UL (150-450) Mean Platelet Volume 7.4 FL (6.5-10.1) Neutrophils (%) (Auto) % (45.0-75.0) Lymphocytes (%) (Auto) % (20.0-45.0) Monocytes (%) (Auto) % (1.0-10.0) Eosinophils (%) (Auto) % (0.0-3.0) Basophils (%) (Auto) % (0.0-2.0) Differential Total Cells Counted 100 Neutrophils % (Manual) 88 % (45-75) H Lymphocytes % (Manual) 7 % (20-45) L Monocytes % (Manual) 4 % (1-10) Eosinophils % (Manual) 1 % (0-3) Basophils % (Manual) 0 % (0-2) Band Neutrophils 0 % (0-8) Platelet Estimate Adequate Platelet Morphology Normal Red Blood Cell Morphology Normal Sodium Level 138 MMOL/L (136-145) Potassium Level 3.3 MMOL/L (3.5-5.1) L Chloride Level 102 MMOL/L (98-107) Carbon Dioxide Level 23 MMOL/L (21-32) Anion Gap 13 mmol/L (5-15) Blood Urea Nitrogen 10 mg/dL (7-18) Creatinine 0.9 MG/DL (0.55-1.30) Estimat Glomerular Filtration Rate > 60 mL/min (>60) Glucose Level 78 MG/DL (74-106) Uric Acid 6.8 MG/DL (2.6-7.2) Calcium Level 8.7 MG/DL (8.5-10.1) Phosphorus Level 2.4 MG/DL (2.5-4.9) L Magnesium Level 2.0 MG/DL (1.8-2.4) Total Bilirubin 1.1 MG/DL (0.2-1.0) H Direct Bilirubin 0.6 MG/DL (0.0-0.3) H Gamma Glutamyl Transpeptidase 150 U/L (5-85) H Aspartate Amino Transf (AST/SGOT) 86 U/L (15-37) H Alanine Aminotransferase (ALT/SGPT) 66 U/L (12-78) Alkaline Phosphatase 95 U/L (46-116) Troponin I 0.004 ng/mL (0.000-0.056) C-Reactive Protein, Quantitative 26.8 mg/dL (0.00-0.90) H Pro-B-Type Natriuretic Peptide 167 pg/mL (0-125) H Total Protein 6.5 G/DL (6.4-8.2) Albumin 2.6 G/DL (3.4-5.0) L Globulin 3.9 g/dL Albumin/Globulin Ratio 0.7 (1.0-2.7) L Triglycerides Level 177 MG/DL (30-150) H Cholesterol Level 164 MG/DL (< 200) LDL Cholesterol 96 mg/dL (<100) HDL Cholesterol 28 MG/DL (40-60) L Cholesterol/HDL Ratio 5.9 (3.3-4.4) H Vitamin B12 Level 543 PG/ML (193-986) Folate 5.6 NG/ML (8.6-58.9) L Thyroid Stimulating Hormone (TSH) 2.467 uiU/mL (0.358-3.740) Free Thyroxine 1.55 NG/DL (0.76-1.46) H Microbiology Date/Time Source Procedure Growth Status 01/15/20 09:10 Blood Blood Culture - Preliminary Gram Negative Bacillus 1 Resulted 01/15/20 09:10 Blood Blood Culture - Preliminary Gram Negative Bacillus 1 Resulted 01/15/20 11:26 Nasal Nares Left MRSA Culture - Final NO METHICILLIN RESISTANT STAPH AUREUS... Complete 01/15/20 11:23 Nasal Nares Left - Final Complete 01/15/20 11:23 Nasal Nares Left - Final Complete 01/16/20 15:45 Indwelling Cath Urine Culture - Preliminary NO GROWTH Resulted 01/15/20 11:26 Rectum Received Objective HEAD AND NECK: No JVD. LUNGS: Clear. CARDIOVASCULAR: Regular S1 and S2 with no gallop or murmur. ABDOMEN: Soft. EXTREMITIES: 1+ pitting edema. His right arm is paralyzed. Delonte Torres MD Jan 17, 2020 10:57
[2020-01-17 12:00] VITALS: BP_SYST 110; BP_SYST 92; BP_DIAS 63; BP_DIAS 73
[2020-01-17] MEDS: Potassium Phosphate 15mm/250ml 250 ML IVPB SCH ×3 (12:48→17:48)
[2020-01-17] MEDS: Cefepime HCl 1 GM in D5W 55 ML IVPB SCH (12:48)
--- NOTE | 2020-01-17 13:03 | Nephrology Progress Note ---
Assessment/Plan Problem List: (1) Proteinuria (2) MS (multiple sclerosis) (3) Tachycardia (4) Leukocytosis (5) Fatty liver (6) Elevated troponin I level (7) Chronic indwelling Valadez catheter Assessment Proteinuria and hypoalbuminemia , will rule out nephrotic syndrome Obese with BMI of 35.9 Multiple sclerosis Chronic Valadez catheter Multiple drug allergies to vancomycin sulfa and penicillin History of hepatic hemangioma Fatty liver Chronic pain History of thrombocytopenia Elevated troponin I Plan Obtain 24-hour urine for total protein. Collection is in process Correct electrolytes. Potassium phosphate ordered Per cardiology advice Monitor liver function tests, TSH Per orders Objective Objective Last 24 Hour Vital Signs Date Time Temp Pulse Resp B/P (MAP) Pulse Ox O2 Delivery O2 Flow Rate FiO2 01/17/20 09:16 103 114/45 01/17/20 08:30 Room Air 01/17/20 08:00 99.1 103 20 114/45 (68) 96 01/17/20 04:00 98.2 111 20 116/68 (84) 94 01/17/20 04:00 109 01/17/20 00:00 99 01/17/20 00:00 98.4 103 20 106/64 (78) 94 01/16/20 21:08 113 111/79 01/16/20 21:00 Room Air 01/16/20 20:00 116 01/16/20 20:00 98.8 113 20 111/79 (90) 94 01/16/20 16:00 114 01/16/20 16:00 97.5 115 20 102/65 (77) 95 Intake and Output 01/16/20 01/17/20 19:00 07:00 Intake Total 880 ml 120 ml Output Total 1900 ml Balance -1020 ml 120 ml Intake Oral 880 ml 120 ml Output Urine Total 1900 ml # Bowel Movements 2 1 Laboratory Tests 01/16/20 15:45: Urine Opiates Screen Negative, Urine Barbiturates Screen Negative, Phencyclidine (PCP) Screen Negative, Urine Amphetamines Screen Negative, Urine Benzodiazepines Screen Negative, Urine Cocaine Screen Negative, Urine Marijuana (THC) Screen Negative 01/17/20 05:44: White Blood Count 17.3H, Red Blood Count 4.92, Hemoglobin 14.9, Hematocrit 42.5 , Mean Corpuscular Volume 86, Mean Corpuscular Hemoglobin 30.3, Mean Corpuscular Hemoglobin Concent 35.0, Red Cell Distribution Width 11.8, Platelet Count 151, Mean Platelet Volume 7.4, Neutrophils (%) (Auto) , Lymphocytes (%) ( Auto) , Monocytes (%) (Auto) , Eosinophils (%) (Auto) , Basophils (%) (Auto) , Differential Total Cells Counted 100, Neutrophils % (Manual) 88H, Lymphocytes % (Manual) 7L, Monocytes % (Manual) 4, Eosinophils % (Manual) 1, Basophils % ( Manual) 0, Band Neutrophils 0, Platelet Estimate Adequate, Platelet Morphology Normal, Red Blood Cell Morphology Normal, Sodium Level 138, Potassium Level 3.3L , Chloride Level 102, Carbon Dioxide Level 23, Anion Gap 13, Blood Urea Nitrogen 10, Creatinine 0.9, Estimat Glomerular Filtration Rate > 60, Glucose Level 78, Uric Acid 6.8, Calcium Level 8.7, Phosphorus Level 2.4L, Magnesium Level 2.0, Total Bilirubin 1.1H, Direct Bilirubin 0.6H, Gamma Glutamyl Transpeptidase 150H, Aspartate Amino Transf (AST/SGOT) 86H, Alanine Aminotransferase (ALT/SGPT) 66, Alkaline Phosphatase 95, Troponin I 0.004, C- Reactive Protein, Quantitative 26.8H, Pro-B-Type Natriuretic Peptide 167H, Total Protein 6.5, Albumin 2.6L, Globulin 3.9, Albumin/Globulin Ratio 0.7L, Triglycerides Level 177H, Cholesterol Level 164, LDL Cholesterol 96, HDL Cholesterol 28L, Cholesterol/HDL Ratio 5.9H, Vitamin B12 Level 543, Folate 5.6L , Thyroid Stimulating Hormone (TSH) 2.467, Free Thyroxine 1.55H Height (Feet): 6 Height (Inches): 0.00 Weight (Pounds): 265 Tom Guillaume MD Jan 17, 2020 13:03
[2020-01-17] MEDS ORDERED: HYDROcodone/Acetamin 10/325 tab ORAL PRN (15:15)
[2020-01-17] MEDS ORDERED: HYDROcodone/Acetamin 5/325 tab ORAL PRN (15:15)
[2020-01-17 16:00] VITALS: BP 93/53
--- NOTE | 2020-01-17 16:01 | Infectious Diseases Prog Note ---
Assessment/Plan Assessment/Plan IMPRESSION: Gram-negative sepsis, ?UTI. Cholelithiasis Acute renal failure that is Multiple sclerosis, Hepatosplenomegaly. Non ST elevation DC RECOMMENDATION: Continue cefepime We will follow up the cultures. Subjective ROS Limited/Unobtainable: No Respiratory: Reports: no symptoms Gastrointestinal/Abdominal: Reports: no symptoms Genitourinary: Reports: no symptoms Musculoskeletal: Reports: pain, other - feet Allergies: Coded Allergies: PENICILLINS (Verified Allergy, Severe, Rash, 03/29/14) SULFA (SULFONAMIDE ANTIBIOTICS) (Unverified Allergy, Intermediate, 03/30/14 ) VANCOMYCIN (Verified Allergy, Intermediate, 03/30/14) Objective Vital Signs Last 24 Hour Vital Signs Date Time Temp Pulse Resp B/P (MAP) Pulse Ox O2 Delivery O2 Flow Rate FiO2 01/17/20 12:00 97.9 88 20 92/63 (73) 93 01/17/20 12:00 101 01/17/20 09:16 103 114/45 01/17/20 08:30 Room Air 01/17/20 08:00 114 01/17/20 08:00 99.1 103 20 114/45 (68) 96 01/17/20 04:00 98.2 111 20 116/68 (84) 94 01/17/20 04:00 109 01/17/20 00:00 99 01/17/20 00:00 98.4 103 20 106/64 (78) 94 01/16/20 21:08 113 111/79 01/16/20 21:00 Room Air 01/16/20 20:00 116 01/16/20 20:00 98.8 113 20 111/79 (90) 94 01/16/20 16:00 114 01/16/20 16:00 97.5 115 20 102/65 (77) 95 Height (Feet): 6 Height (Inches): 0.00 Weight (Pounds): 265 General Appearance: no acute distress HEENT: mucous membranes moist Respiratory/Chest: lungs clear Cardiovascular: tachycardia Abdomen: soft, non tender Extremities: other - mild edema Neurologic/Psychiatric: alert, responsive, other - paraplegic Microbiology Date/Time Source Procedure Growth Status 01/15/20 09:10 Blood Blood Culture - Preliminary Gram Negative Bacillus 1 Resulted 01/15/20 09:10 Blood Blood Culture - Preliminary Gram Negative Bacillus 1 Resulted 01/15/20 11:26 Nasal Nares Left MRSA Culture - Final NO METHICILLIN RESISTANT STAPH AUREUS... Complete 01/15/20 11:23 Nasal Nares Left - Final Complete 01/15/20 11:23 Nasal Nares Left - Final Complete 01/16/20 15:45 Indwelling Cath Urine Culture - Preliminary NO GROWTH Resulted 01/15/20 11:26 Rectum Received Laboratory Tests Test 01/17/20 05:44 White Blood Count 17.3 K/UL (4.8-10.8) H Red Blood Count 4.92 M/UL (4.70-6.10) Hemoglobin 14.9 G/DL (14.2-18.0) Hematocrit 42.5 % (42.0-52.0) Mean Corpuscular Volume 86 FL (80-99) Mean Corpuscular Hemoglobin 30.3 PG (27.0-31.0) Mean Corpuscular Hemoglobin Concent 35.0 G/DL (32.0-36.0) Red Cell Distribution Width 11.8 % (11.6-14.8) Platelet Count 151 K/UL (150-450) Mean Platelet Volume 7.4 FL (6.5-10.1) Neutrophils (%) (Auto) % (45.0-75.0) Lymphocytes (%) (Auto) % (20.0-45.0) Monocytes (%) (Auto) % (1.0-10.0) Eosinophils (%) (Auto) % (0.0-3.0) Basophils (%) (Auto) % (0.0-2.0) Differential Total Cells Counted 100 Neutrophils % (Manual) 88 % (45-75) H Lymphocytes % (Manual) 7 % (20-45) L Monocytes % (Manual) 4 % (1-10) Eosinophils % (Manual) 1 % (0-3) Basophils % (Manual) 0 % (0-2) Band Neutrophils 0 % (0-8) Platelet Estimate Adequate Platelet Morphology Normal Red Blood Cell Morphology Normal Sodium Level 138 MMOL/L (136-145) Potassium Level 3.3 MMOL/L (3.5-5.1) L Chloride Level 102 MMOL/L (98-107) Carbon Dioxide Level 23 MMOL/L (21-32) Anion Gap 13 mmol/L (5-15) Blood Urea Nitrogen 10 mg/dL (7-18) Creatinine 0.9 MG/DL (0.55-1.30) Estimat Glomerular Filtration Rate > 60 mL/min (>60) Glucose Level 78 MG/DL (74-106) Uric Acid 6.8 MG/DL (2.6-7.2) Calcium Level 8.7 MG/DL (8.5-10.1) Phosphorus Level 2.4 MG/DL (2.5-4.9) L Magnesium Level 2.0 MG/DL (1.8-2.4) Total Bilirubin 1.1 MG/DL (0.2-1.0) H Direct Bilirubin 0.6 MG/DL (0.0-0.3) H Gamma Glutamyl Transpeptidase 150 U/L (5-85) H Aspartate Amino Transf (AST/SGOT) 86 U/L (15-37) H Alanine Aminotransferase (ALT/SGPT) 66 U/L (12-78) Alkaline Phosphatase 95 U/L (46-116) Troponin I 0.004 ng/mL (0.000-0.056) C-Reactive Protein, Quantitative 26.8 mg/dL (0.00-0.90) H Pro-B-Type Natriuretic Peptide 167 pg/mL (0-125) H Total Protein 6.5 G/DL (6.4-8.2) Albumin 2.6 G/DL (3.4-5.0) L Globulin 3.9 g/dL Albumin/Globulin Ratio 0.7 (1.0-2.7) L Triglycerides Level 177 MG/DL (30-150) H Cholesterol Level 164 MG/DL (< 200) LDL Cholesterol 96 mg/dL (<100) HDL Cholesterol 28 MG/DL (40-60) L Cholesterol/HDL Ratio 5.9 (3.3-4.4) H Vitamin B12 Level 543 PG/ML (193-986) Folate 5.6 NG/ML (8.6-58.9) L Thyroid Stimulating Hormone (TSH) 2.467 uiU/mL (0.358-3.740) Free Thyroxine 1.55 NG/DL (0.76-1.46) H Current Medications Medications (Trade) Dose Ordered Sig/Vicky Route PRN Reason Start Time Stop Time Status Last Admin Dose Admin Acetaminophen (Tylenol) 650 mg Q4H PRN ORAL Mild Pain/Temp > 100.5 01/15/20 14:00 02/14/20 13:59 01/16/20 03:14 Aspirin (ASA) 81 mg DAILY ORAL 01/16/20 17:30 03/01/20 17:29 01/17/20 09:16 Atorvastatin Calcium (Lipitor) 20 mg BEDTIME ORAL 01/16/20 21:00 02/15/20 20:59 01/16/20 21:07 Baclofen (Lioresal) 10 mg THREE TIMES A DAY ORAL 01/15/20 18:00 02/14/20 17:59 01/17/20 13:53 Bisacodyl (Dulcolax) 10 mg DAILY ORAL 01/16/20 20:00 02/15/20 19:59 01/17/20 09:20 Cefepime HCl 1 gm/ Dextrose 55 ml @ 110 mls/hr Q12H IVPB 01/16/20 00:00 01/23/20 00:00 01/17/20 12:48 Docusate Sodium (Colace) 100 mg THREE TIMES A DAY ORAL 01/16/20 18:00 02/15/20 17:59 01/17/20 09:16 Enoxaparin Sodium (Lovenox) 40 mg DAILY SUBQ 01/17/20 09:00 02/16/20 08:59 01/17/20 09:23 Folic Acid (Folate) 2 mg DAILY ORAL 01/17/20 10:15 02/16/20 10:14 01/17/20 12:47 Gabapentin (Neurontin) 600 mg THREE TIMES A DAY ORAL 01/15/20 18:00 02/14/20 17:59 01/17/20 13:52 Metoprolol Tartrate (Lopressor) 12.5 mg Q12HR ORAL 01/16/20 21:00 02/15/20 20:59 01/17/20 09:16 Pantoprazole (Protonix) 40 mg EVERY 12 HOURS ORAL 01/16/20 21:00 02/15/20 20:59 01/17/20 09:21 Potassium Phosphate 250 ml @ 62.5 mls/hr Q4H IVPB 01/17/20 11:00 01/17/20 18:59 01/17/20 12:48 Pregabalin (Lyrica) 25 mg THREE TIMES A DAY ORAL 01/15/20 18:00 02/14/20 17:59 01/17/20 13:53 Sennosides (Senokot) 8.6 mg DAILY ORAL 01/17/20 09:00 02/16/20 08:59 01/17/20 09:16 Sd Ponce MD Jan 17, 2020 16:01
[2020-01-17 20:00] VITALS: BP 122/67
--- NOTE | 2020-01-17 20:41 | General Progress Note ---
Assessment/Plan Problem List: (1) MS (multiple sclerosis) ICD Codes: G35 - MS (multiple sclerosis) SNOMED: 95733511 (2) Leukocytosis ICD Codes: D72.829 - Leukocytosis SNOMED: 961300763 (3) Generalized weakness ICD Codes: R53.1 - Generalized weakness SNOMED: 06075543 (4) Fatty liver ICD Codes: K76.0 - Fatty liver SNOMED: 995391639 (5) Tachycardia ICD Codes: R00.0 - Tachycardia, unspecified SNOMED: 3168800 (6) Severe dehydration ICD Codes: E86.0 - Dehydration SNOMED: 979417845 (7) Cellulitis of left leg ICD Codes: L03.116 - Cellulitis of left leg SNOMED: 441228154 Status: progressing Assessment/Plan: persistent leukocytosis weak sepsis check labs Subjective ROS Limited/Unobtainable: Yes Allergies: Coded Allergies: PENICILLINS (Verified Allergy, Severe, Rash, 03/29/14) SULFA (SULFONAMIDE ANTIBIOTICS) (Unverified Allergy, Intermediate, 03/30/14 ) VANCOMYCIN (Verified Allergy, Intermediate, 03/30/14) Objective Last 24 Hour Vital Signs Date Time Temp Pulse Resp B/P (MAP) Pulse Ox O2 Delivery O2 Flow Rate FiO2 01/17/20 16:00 97.6 82 20 93/53 (66) 98 01/17/20 16:00 101 01/17/20 12:00 97.7 96 20 110/73 (85) 96 01/17/20 12:00 97.9 88 20 92/63 (73) 93 01/17/20 12:00 101 01/17/20 09:16 103 114/45 01/17/20 08:30 Room Air 01/17/20 08:00 114 01/17/20 08:00 99.1 103 20 114/45 (68) 96 01/17/20 04:00 98.2 111 20 116/68 (84) 94 01/17/20 04:00 109 01/17/20 00:00 99 01/17/20 00:00 98.4 103 20 106/64 (78) 94 01/16/20 21:08 113 111/79 01/16/20 21:00 Room Air Intake and Output 01/16/20 01/17/20 19:00 07:00 Intake Total 880 ml 120 ml Output Total 1900 ml Balance -1020 ml 120 ml Intake Oral 880 ml 120 ml Output Urine Total 1900 ml # Bowel Movements 2 1 Laboratory Tests 01/17/20 05:44: White Blood Count 17.3H, Red Blood Count 4.92, Hemoglobin 14.9, Hematocrit 42.5 , Mean Corpuscular Volume 86, Mean Corpuscular Hemoglobin 30.3, Mean Corpuscular Hemoglobin Concent 35.0, Red Cell Distribution Width 11.8, Platelet Count 151, Mean Platelet Volume 7.4, Neutrophils (%) (Auto) , Lymphocytes (%) ( Auto) , Monocytes (%) (Auto) , Eosinophils (%) (Auto) , Basophils (%) (Auto) , Differential Total Cells Counted 100, Neutrophils % (Manual) 88H, Lymphocytes % (Manual) 7L, Monocytes % (Manual) 4, Eosinophils % (Manual) 1, Basophils % ( Manual) 0, Band Neutrophils 0, Platelet Estimate Adequate, Platelet Morphology Normal, Red Blood Cell Morphology Normal, Sodium Level 138, Potassium Level 3.3L , Chloride Level 102, Carbon Dioxide Level 23, Anion Gap 13, Blood Urea Nitrogen 10, Creatinine 0.9, Estimat Glomerular Filtration Rate > 60, Glucose Level 78, Uric Acid 6.8, Calcium Level 8.7, Phosphorus Level 2.4L, Magnesium Level 2.0, Total Bilirubin 1.1H, Direct Bilirubin 0.6H, Gamma Glutamyl Transpeptidase 150H, Aspartate Amino Transf (AST/SGOT) 86H, Alanine Aminotransferase (ALT/SGPT) 66, Alkaline Phosphatase 95, Troponin I 0.004, C- Reactive Protein, Quantitative 26.8H, Pro-B-Type Natriuretic Peptide 167H, Total Protein 6.5, Albumin 2.6L, Globulin 3.9, Albumin/Globulin Ratio 0.7L, Triglycerides Level 177H, Cholesterol Level 164, LDL Cholesterol 96, HDL Cholesterol 28L, Cholesterol/HDL Ratio 5.9H, Vitamin B12 Level 543, Folate 5.6L , Thyroid Stimulating Hormone (TSH) 2.467, Free Thyroxine 1.55H Height (Feet): 6 Height (Inches): 0.00 Weight (Pounds): 265 Whitney Fontanez MD Jan 17, 2020 20:41
[2020-01-17] MEDS: Atorvastatin 20mg tab ORAL SCH (20:56)
[2020-01-18] VITALS: BP 130/77
[2020-01-18] MEDS: Cefepime HCl 1 GM in D5W 55 ML IVPB SCH ×2
[2020-01-18 04:00] VITALS: BP 120/86
--- NOTE | 2020-01-18 06:18 | Hematology/Onc Progress Note ---
Assessment/Plan Assessment/Plan Assessment/Plan # Leukopenia -- multiple etiologies could be related to underlying liver disease , medication-induced, infection versus viral syndrome --> peripheral smear has been ordered and does not show significant abnormalities --> Medications have been reviewed --> Continue to monitor for improvement, trend cbc --> Hep panel and HIV have been ordered--> NEG --> US abd ordered to r/o cirrhosis and hepatosplenomegaly --> shows hsm --> reverse isolation if ANC is <2000 --> Give neupogen if ANC <1000 (WAS GIVEN x1 dose) --> wbc 2-->17-->16 # History of thrombocytopenia --> now has improved, plt is at nml range # Proteinuria and hypoalbuminemia , will rule out nephrotic syndrome --> per cards # Obese with BMI of 35.9 --> recommend lifestyle changes # Multiple sclerosis --> as per neuro # Elevated trop --> downtrended --> as per cards # Chronic Valadez catheter # Multiple drug allergies to vancomycin sulfa and penicillin # History of hepatic hemangioma # Fatty liver # Chronic pain The timing of this note does not necessarily reflect the time of the patient was seen. Greatly appreciate consultation. Subjective Constitutional: Denies: no symptoms, chills, fever, malaise, weakness, other HEENT: Denies: no symptoms, eye pain, blurred vision, tearing, double vision, ear pain, ear discharge, nose pain, nose congestion, throat pain, throat swelling, mouth pain, mouth swelling, other Cardiovascular: Denies: no symptoms, chest pain, edema, irregular heart rate, lightheadedness, palpitations, syncope, other Respiratory: Denies: no symptoms, cough, shortness of breath, SOB with excertion, SOB at rest, sputum, wheezing, other Gastrointestinal/Abdominal: Denies: no symptoms, abdomen distended, abdominal pain, black stools, tarry stools, blood in stool, constipated, diarrhea, difficulty swallowing, nausea, poor appetite, poor fluid intake, rectal bleeding , vomiting, other Neurologic/Psychiatric: Denies: no symptoms, anxiety, depressed, emotional problems, headache, numbness, paresthesia, pre-existing deficit, seizure, tingling, tremors, weakness, other Endocrine: Denies: no symptoms, excessive sweating, flushing, intolerance to cold, intolerance to heat, increased hunger, increased thirst, increased urine, unexplained weight gain, unexplained weight loss, other Hematologic/Lymphatic: Denies: no symptoms, anemia, easy bleeding, easy bruising, adenopathy, other Allergies: Coded Allergies: PENICILLINS (Verified Allergy, Severe, Rash, 03/29/14) SULFA (SULFONAMIDE ANTIBIOTICS) (Unverified Allergy, Intermediate, 03/30/14 ) VANCOMYCIN (Verified Allergy, Intermediate, 03/30/14) Subjective 01/16: no events, labs noted, no bleeding or chills, trop downtrending, cbc pending 01/17: remains on cefepime, without complaints, no bleeding or chills, labs noted Objective Objective Current Medications Medications (Trade) Dose Ordered Sig/Vicky Route PRN Reason Start Time Stop Time Status Last Admin Dose Admin Acetaminophen (Tylenol) 650 mg Q4H PRN ORAL Mild Pain/Temp > 100.5 01/15/20 14:00 02/14/20 13:59 01/16/20 03:14 Aspirin (ASA) 81 mg DAILY ORAL 01/16/20 17:30 03/01/20 17:29 01/17/20 09:16 Atorvastatin Calcium (Lipitor) 20 mg BEDTIME ORAL 01/16/20 21:00 02/15/20 20:59 01/17/20 20:56 Baclofen (Lioresal) 10 mg THREE TIMES A DAY ORAL 01/15/20 18:00 02/14/20 17:59 01/17/20 17:45 Bisacodyl (Dulcolax) 10 mg DAILY ORAL 01/16/20 20:00 02/15/20 19:59 01/17/20 09:20 Cefepime HCl 1 gm/ Dextrose 55 ml @ 110 mls/hr Q12H IVPB 01/16/20 00:00 01/23/20 00:00 01/18/20 00:00 Docusate Sodium (Colace) 100 mg THREE TIMES A DAY ORAL 01/16/20 18:00 02/15/20 17:59 01/17/20 09:16 Enoxaparin Sodium (Lovenox) 40 mg DAILY SUBQ 01/17/20 09:00 02/16/20 08:59 01/17/20 09:23 Folic Acid (Folate) 2 mg DAILY ORAL 01/17/20 10:15 02/16/20 10:14 01/17/20 12:47 Gabapentin (Neurontin) 600 mg THREE TIMES A DAY ORAL 01/15/20 18:00 02/14/20 17:59 01/17/20 17:46 Metoprolol Tartrate (Lopressor) 12.5 mg Q12HR ORAL 01/16/20 21:00 02/15/20 20:59 01/17/20 20:57 Pantoprazole (Protonix) 40 mg EVERY 12 HOURS ORAL 01/16/20 21:00 02/15/20 20:59 01/17/20 20:56 Pregabalin (Lyrica) 25 mg THREE TIMES A DAY ORAL 01/15/20 18:00 02/14/20 17:59 01/17/20 17:46 Sennosides (Senokot) 8.6 mg DAILY ORAL 01/17/20 09:00 02/16/20 08:59 01/17/20 09:16 Last 24 Hour Vital Signs Date Time Temp Pulse Resp B/P (MAP) Pulse Ox O2 Delivery O2 Flow Rate FiO2 01/18/20 04:00 94 01/18/20 04:00 98.1 96 20 120/86 (97) 94 01/18/20 00:00 89 01/18/20 00:00 97.7 92 20 130/77 (94) 94 01/17/20 21:00 Room Air 01/17/20 20:57 101 122/67 01/17/20 20:00 96.1 101 20 122/67 (85) 97 01/17/20 20:00 101 01/17/20 16:00 97.6 82 20 93/53 (66) 98 01/17/20 16:00 101 01/17/20 12:00 97.7 96 20 110/73 (85) 96 01/17/20 12:00 97.9 88 20 92/63 (73) 93 01/17/20 12:00 101 01/17/20 09:16 103 114/45 01/17/20 08:30 Room Air 01/17/20 08:00 114 01/17/20 08:00 99.1 103 20 114/45 (68) 96 01/17/20 04:00 98.2 111 20 116/68 (84) 94 01/17/20 04:00 109 01/17/20 00:00 99 01/17/20 00:00 98.4 103 20 106/64 (78) 94 01/16/20 21:08 113 111/79 01/16/20 21:00 Room Air 01/16/20 20:00 116 01/16/20 20:00 98.8 113 20 111/79 (90) 94 01/16/20 16:00 114 01/16/20 16:00 97.5 115 20 102/65 (77) 95 01/16/20 12:00 113 01/16/20 12:00 97.9 107 20 118/68 (85) 95 01/16/20 08:37 Room Air 01/16/20 08:00 113 01/16/20 08:00 97.3 107 20 133/64 (87) 93 Intake and Output 01/17/20 01/18/20 19:00 07:00 Intake Total 800 ml 55 ml Output Total 1300 ml Balance -500 ml 55 ml Intake Oral 800 ml IV Total 55 ml Output Urine Total 1300 ml # Bowel Movements 4 Labs Test 01/15/20 08:25 01/15/20 09:10 01/15/20 11:00 01/15/20 11:50 Urine Color Red Urine Appearance Cloudy Urine pH 6.5 (4.5-8.0) Urine Specific [place] 1.010 (1.005-1.035) Urine Protein 4+ (NEGATIVE) Urine Glucose (UA) Negative (NEGATIVE) Urine Ketones 1+ (NEGATIVE) Urine Blood 5+ (NEGATIVE) Urine Nitrite Negative (NEGATIVE) Urine Bilirubin Negative (NEGATIVE) Urine Urobilinogen Normal MG/DL (0.0-1.0) Urine Leukocyte Esterase Negative (NEGATIVE) Urine RBC Tntc /HPF (0 - 0) Urine WBC 0-2 /HPF (0 - 0) Urine Squamous Epithelial Cells None /LPF (NONE/OCC) Urine Bacteria Few /HPF (NONE) White Blood Count 2.1 K/UL (4.8-10.8) Red Blood Count 5.57 M/UL (4.70-6.10) Hemoglobin 16.7 G/DL (14.2-18.0) Hematocrit 48.8 % (42.0-52.0) Mean Corpuscular Volume 88 FL (80-99) Mean Corpuscular Hemoglobin 30.0 PG (27.0-31.0) Mean Corpuscular Hemoglobin Concent 34.3 G/DL (32.0-36.0) Red Cell Distribution Width 11.9 % (11.6-14.8) Platelet Count 214 K/UL (150-450) Mean Platelet Volume 6.0 FL (6.5-10.1) Neutrophils (%) (Auto) % (45.0-75.0) Lymphocytes (%) (Auto) % (20.0-45.0) Monocytes (%) (Auto) % (1.0-10.0) Eosinophils (%) (Auto) % (0.0-3.0) Basophils (%) (Auto) % (0.0-2.0) Differential Total Cells Counted 100 Neutrophils % (Manual) 42 % (45-75) Lymphocytes % (Manual) 52 % (20-45) Monocytes % (Manual) 6 % (1-10) Eosinophils % (Manual) 0 % (0-3) Basophils % (Manual) 0 % (0-2) Band Neutrophils 0 % (0-8) Platelet Estimate Adequate Platelet Morphology Normal Red Blood Cell Morphology Normal Sodium Level 139 MMOL/L (136-145) Potassium Level 3.4 MMOL/L (3.5-5.1) Chloride Level 102 MMOL/L (98-107) Carbon Dioxide Level 23 MMOL/L (21-32) Anion Gap 14 mmol/L (5-15) Blood Urea Nitrogen 15 mg/dL (7-18) Creatinine 1.5 MG/DL (0.55-1.30) Estimat Glomerular Filtration Rate 49.5 mL/min (>60) Glucose Level 97 MG/DL (74-106) Lactic Acid Level 5.30 mmol/L (0.4-2.0) 2.90 mmol/L (0.66-2.22) Calcium Level 8.1 MG/DL (8.5-10.1) Magnesium Level 1.6 MG/DL (1.8-2.4) Total Bilirubin 0.9 MG/DL (0.2-1.0) Aspartate Amino Transf (AST/SGOT) 31 U/L (15-37) Alanine Aminotransferase (ALT/SGPT) 38 U/L (12-78) Alkaline Phosphatase 118 U/L (46-116) Total Creatine Kinase 249 U/L (26-308) Troponin I 0.068 ng/mL (0.000-0.056) Total Protein 6.9 G/DL (6.4-8.2) Albumin 2.7 G/DL (3.4-5.0) Globulin 4.2 g/dL Albumin/Globulin Ratio 0.6 (1.0-2.7) Test 01/15/20 15:20 01/16/20 06:50 01/16/20 15:45 01/16/20 19:00 Troponin I 0.331 ng/mL (0.000-0.056) 0.094 ng/mL (0.000-0.056) Total Protein (PEP) 5.9 g/dL (6.0-8.5) Albumin (PEP) 2.5 g/dL (2.9-4.4) Globulin (PEP) 3.4 g/dL (2.2-3.9) Albumin/Globulin Ratio 0.7 (0.7-1.7) Cjzjq-5-Znkeogabp 0.3 g/dL (0.0-0.4) Pmxok-2-Uamefzvnd 0.7 g/dL (0.4-1.0) Beta Globulins 0.9 g/dL (0.7-1.3) Beta Gamma Globulin 1.4 g/dL (0.4-1.8) PEP Abnormal Protein Bands Not observed g/dL (Not Protein Electrophoresis Interpret Comment (.) HIV (1&2) Antibody Rapid Negative (NEGATIVE) White Blood Count 16.8 K/UL (4.8-10.8) Red Blood Count 5.08 M/UL (4.70-6.10) Hemoglobin 15.3 G/DL (14.2-18.0) Hematocrit 43.7 % (42.0-52.0) Mean Corpuscular Volume 86 FL (80-99) Mean Corpuscular Hemoglobin 30.1 PG (27.0-31.0) Mean Corpuscular Hemoglobin Concent 35.0 G/DL (32.0-36.0) Red Cell Distribution Width 11.6 % (11.6-14.8) Platelet Count 164 K/UL (150-450) Mean Platelet Volume 7.5 FL (6.5-10.1) Neutrophils (%) (Auto) % (45.0-75.0) Lymphocytes (%) (Auto) % (20.0-45.0) Monocytes (%) (Auto) % (1.0-10.0) Eosinophils (%) (Auto) % (0.0-3.0) Basophils (%) (Auto) % (0.0-2.0) Differential Total Cells Counted 100 Neutrophils % (Manual) 77 % (45-75) Lymphocytes % (Manual) 4 % (20-45) Monocytes % (Manual) 5 % (1-10) Eosinophils % (Manual) 0 % (0-3) Basophils % (Manual) 0 % (0-2) Band Neutrophils 14 % (0-8) Platelet Estimate Adequate Platelet Morphology Normal Sodium Level 137 MMOL/L (136-145) Potassium Level 3.6 MMOL/L (3.5-5.1) Chloride Level 102 MMOL/L (98-107) Carbon Dioxide Level 22 MMOL/L (21-32) Anion Gap 13 mmol/L (5-15) Blood Urea Nitrogen 13 mg/dL (7-18) Creatinine 1.1 MG/DL (0.55-1.30) Estimat Glomerular Filtration Rate > 60 mL/min (>60) Glucose Level 87 MG/DL (74-106) Hemoglobin A1c 5.7 % (4.3-6.0) Uric Acid 8.2 MG/DL (2.6-7.2) Calcium Level 8.6 MG/DL (8.5-10.1) Phosphorus Level 3.0 MG/DL (2.5-4.9) Magnesium Level 1.6 MG/DL (1.8-2.4) Total Bilirubin 1.1 MG/DL (0.2-1.0) Direct Bilirubin 0.5 MG/DL (0.0-0.3) Aspartate Amino Transf (AST/SGOT) 103 U/L (15-37) Alanine Aminotransferase (ALT/SGPT) 70 U/L (12-78) Alkaline Phosphatase 83 U/L (46-116) Total Protein 7.0 G/DL (6.4-8.2) Albumin 2.6 G/DL (3.4-5.0) Urine Opiates Screen Negative (NEGATIVE) Urine Barbiturates Screen Negative (NEGATIVE) Phencyclidine (PCP) Screen Negative (NEGATIVE) Urine Amphetamines Screen Negative (NEGATIVE) Urine Benzodiazepines Screen Negative (NEGATIVE) Urine Cocaine Screen Negative (NEGATIVE) Urine Marijuana (THC) Screen Negative (NEGATIVE) Urine Collection Time 24 HRS Urine Total Volume 5450 ML Urine Total Protein mg/dL 8 mg/dL Urine Total Protein 24 Hour 8.1 mg/24hr (< 150) Test 01/17/20 05:44 White Blood Count 17.3 K/UL (4.8-10.8) Red Blood Count 4.92 M/UL (4.70-6.10) Hemoglobin 14.9 G/DL (14.2-18.0) Hematocrit 42.5 % (42.0-52.0) Mean Corpuscular Volume 86 FL (80-99) Mean Corpuscular Hemoglobin 30.3 PG (27.0-31.0) Mean Corpuscular Hemoglobin Concent 35.0 G/DL (32.0-36.0) Red Cell Distribution Width 11.8 % (11.6-14.8) Platelet Count 151 K/UL (150-450) Mean Platelet Volume 7.4 FL (6.5-10.1) Neutrophils (%) (Auto) % (45.0-75.0) Lymphocytes (%) (Auto) % (20.0-45.0) Monocytes (%) (Auto) % (1.0-10.0) Eosinophils (%) (Auto) % (0.0-3.0) Basophils (%) (Auto) % (0.0-2.0) Differential Total Cells Counted 100 Neutrophils % (Manual) 88 % (45-75) Lymphocytes % (Manual) 7 % (20-45) Monocytes % (Manual) 4 % (1-10) Eosinophils % (Manual) 1 % (0-3) Basophils % (Manual) 0 % (0-2) Band Neutrophils 0 % (0-8) Platelet Estimate Adequate Platelet Morphology Normal Red Blood Cell Morphology Normal Sodium Level 138 MMOL/L (136-145) Potassium Level 3.3 MMOL/L (3.5-5.1) Chloride Level 102 MMOL/L (98-107) Carbon Dioxide Level 23 MMOL/L (21-32) Anion Gap 13 mmol/L (5-15) Blood Urea Nitrogen 10 mg/dL (7-18) Creatinine 0.9 MG/DL (0.55-1.30) Estimat Glomerular Filtration Rate > 60 mL/min (>60) Glucose Level 78 MG/DL (74-106) Uric Acid 6.8 MG/DL (2.6-7.2) Calcium Level 8.7 MG/DL (8.5-10.1) Phosphorus Level 2.4 MG/DL (2.5-4.9) Magnesium Level 2.0 MG/DL (1.8-2.4) Total Bilirubin 1.1 MG/DL (0.2-1.0) Direct Bilirubin 0.6 MG/DL (0.0-0.3) Gamma Glutamyl Transpeptidase 150 U/L (5-85) Aspartate Amino Transf (AST/SGOT) 86 U/L (15-37) Alanine Aminotransferase (ALT/SGPT) 66 U/L (12-78) Alkaline Phosphatase 95 U/L (46-116) Troponin I 0.004 ng/mL (0.000-0.056) C-Reactive Protein, Quantitative 26.8 mg/dL (0.00-0.90) Pro-B-Type Natriuretic Peptide 167 pg/mL (0-125) Total Protein 6.5 G/DL (6.4-8.2) Albumin 2.6 G/DL (3.4-5.0) Globulin 3.9 g/dL Albumin/Globulin Ratio 0.7 (1.0-2.7) Triglycerides Level 177 MG/DL (30-150) Cholesterol Level 164 MG/DL (< 200) LDL Cholesterol 96 mg/dL (<100) HDL Cholesterol 28 MG/DL (40-60) Cholesterol/HDL Ratio 5.9 (3.3-4.4) Vitamin B12 Level 543 PG/ML (193-986) Folate 5.6 NG/ML (8.6-58.9) Thyroid Stimulating Hormone (TSH) 2.467 uiU/mL (0.358-3.740) Free Thyroxine 1.55 NG/DL (0.76-1.46) Height (Feet): 6 Height (Inches): 0.00 Weight (Pounds): 296 Objective Physical Exam: Vitals: reviewed General: NAD HEENT: nc, at Neck: supple Chest: clear breath sounds bilaterally Cardiovascular: RRR, no s3, s4 Abdomen: soft, nontender, nd Extremities: no cce, normal range of motion, upper ext contracted Neuro: alert and oriented Casey Roberts MD Jan 18, 2020 06:18
--- NOTE | 2020-01-18 07:13 | Cardiac Electrophysiology PN ---
Assessment/Plan Assessment/Plan 1. Non-ST elevation myocardial infarction with three elevated troponins.Last Troponin negative. Likely demand ischemia. Denies any chest pain. Continue aspirin, metoprolol 12.5 bid, and statin. Echo EF 65%. 2. Hypertension. On Metoprolol 3. Multiple sclerosis. 4. Gram negative Sepsis and positive blood cultures, on iv Abx per Dr Ponce 5. Left leg cellulitis. YOVANY RN Subjective Subjective Alert in NAD. No CP. Remained in SR. On iv Abx for positive blood culture Objective Last 24 Hour Vital Signs Date Time Temp Pulse Resp B/P (MAP) Pulse Ox O2 Delivery O2 Flow Rate FiO2 01/18/20 04:00 94 01/18/20 04:00 98.1 96 20 120/86 (97) 94 01/18/20 00:00 89 01/18/20 00:00 97.7 92 20 130/77 (94) 94 01/17/20 21:00 Room Air 01/17/20 20:57 101 122/67 01/17/20 20:00 96.1 101 20 122/67 (85) 97 01/17/20 20:00 101 01/17/20 16:00 97.6 82 20 93/53 (66) 98 01/17/20 16:00 101 01/17/20 12:00 97.7 96 20 110/73 (85) 96 01/17/20 12:00 97.9 88 20 92/63 (73) 93 01/17/20 12:00 101 01/17/20 09:16 103 114/45 01/17/20 08:30 Room Air 01/17/20 08:00 114 01/17/20 08:00 99.1 103 20 114/45 (68) 96 Intake and Output 01/17/20 01/18/20 19:00 07:00 Intake Total 800 ml 295 ml Output Total 1300 ml 1500 ml Balance -500 ml -1205 ml Intake Oral 800 ml 240 ml IV Total 55 ml Output Urine Total 1300 ml 1500 ml # Bowel Movements 4 Microbiology Date/Time Source Procedure Growth Status 01/15/20 09:10 Blood Blood Culture - Preliminary Gram Negative Bacillus 1 Resulted 01/15/20 09:10 Blood Blood Culture - Preliminary Gram Negative Bacillus 1 Resulted 01/15/20 11:26 Nasal Nares Left MRSA Culture - Final NO METHICILLIN RESISTANT STAPH AUREUS... Complete 3/8/20 11:23 Nasal Nares Left - Final Complete 01/15/20 11:23 Nasal Nares Left - Final Complete 01/16/20 15:45 Indwelling Cath Urine Culture - Preliminary NO GROWTH Resulted 01/15/20 11:26 Rectum Received Objective HEAD AND NECK: No JVD. LUNGS: Clear. CARDIOVASCULAR: Regular S1 and S2 with no gallop or murmur. ABDOMEN: Soft. EXTREMITIES: 1+ pitting edema. His right arm is paralyzed. Delonte Torres MD Jan 18, 2020 07:13
[2020-01-18 08:00] VITALS: BP 119/76
[2020-01-18] MEDS: Docusate 100mg cap ORAL SCH ×4 (09:00→18:00)
--- NOTE | 2020-01-18 09:05 | General Progress Note ---
Assessment/Plan Problem List: (1) MS (multiple sclerosis) ICD Codes: G35 - MS (multiple sclerosis) SNOMED: 84308518 (2) Leukocytosis ICD Codes: D72.829 - Leukocytosis SNOMED: 607531031 (3) Generalized weakness ICD Codes: R53.1 - Generalized weakness SNOMED: 11178941 (4) Fatty liver ICD Codes: K76.0 - Fatty liver SNOMED: 980693414 (5) Tachycardia ICD Codes: R00.0 - Tachycardia, unspecified SNOMED: 3772849 (6) Severe dehydration ICD Codes: E86.0 - Dehydration SNOMED: 587587554 (7) Cellulitis of left leg ICD Codes: L03.116 - Cellulitis of left leg SNOMED: 448588339 Status: progressing Assessment/Plan: persistent and worsening leukocytosis weak sepsis will discuss w [place] etiology of leukocytosis Subjective ROS Limited/Unobtainable: Yes Allergies: Coded Allergies: PENICILLINS (Verified Allergy, Severe, Rash, 03/29/14) SULFA (SULFONAMIDE ANTIBIOTICS) (Unverified Allergy, Intermediate, 03/30/14 ) VANCOMYCIN (Verified Allergy, Intermediate, 03/30/14) Objective Last 24 Hour Vital Signs Date Time Temp Pulse Resp B/P (MAP) Pulse Ox O2 Delivery O2 Flow Rate FiO2 01/18/20 08:00 97.6 77 21 119/76 (90) 97 01/18/20 04:00 94 01/18/20 04:00 98.1 96 20 120/86 (97) 94 01/18/20 00:00 89 01/18/20 00:00 97.7 92 20 130/77 (94) 94 01/17/20 21:00 Room Air 01/17/20 20:57 101 122/67 01/17/20 20:00 96.1 101 20 122/67 (85) 97 01/17/20 20:00 101 01/17/20 16:00 97.6 82 20 93/53 (66) 98 01/17/20 16:00 101 01/17/20 12:00 97.7 96 20 110/73 (85) 96 01/17/20 12:00 97.9 88 20 92/63 (73) 93 01/17/20 12:00 101 01/17/20 09:16 103 114/45 Intake and Output 01/17/20 01/18/20 19:00 07:00 Intake Total 800 ml 295 ml Output Total 1300 ml 1500 ml Balance -500 ml -1205 ml Intake Oral 800 ml 240 ml IV Total 55 ml Output Urine Total 1300 ml 1500 ml # Bowel Movements 4 Height (Feet): 6 Height (Inches): 0.00 Weight (Pounds): 296 Whitney Fontanez MD Jan 18, 2020 09:04
[2020-01-18] MEDS: Bisacodyl EC 5mg tab ORAL SCH (09:21)
[2020-01-18] MEDS: Lyrica 25mg cap ORAL SCH ×3 (09:23→18:13)
[2020-01-18] MEDS: Sennosides 8.6mg tab ORAL SCH (09:24)
[2020-01-18] MEDS: Metoprolol Tartrate 12.5mg TAB ORAL SCH ×2 (09:24→21:47)
[2020-01-18] MEDS: Aspirin Baby 81mg ORAL SCH (09:24)
[2020-01-18] MEDS: Enoxaparin 40mg Inj SUBQ SCH (09:25)
[2020-01-18] MEDS ORDERED: DiphenhydrAMINE 25mg Tab ORAL PRN (09:30)
[2020-01-18] MEDS ORDERED: Guaifenesin/DM 10ml syrup ORAL PRN (09:30)
[2020-01-18 12:00] VITALS: BP 110/76
--- NOTE | 2020-01-18 12:00 | Infectious Diseases Prog Note ---
Assessment/Plan Assessment/Plan IMPRESSION: Gram-negative sepsis, ?UTI. Cholelithiasis Acute renal failure that is Multiple sclerosis, Hepatosplenomegaly. Non ST elevation SC Rash likely allergy to Cefepime RECOMMENDATION: Cefepime was changed to Azactam F/U CBC Case was D/W microbiology & RN We will follow up the cultures. Subjective ROS Limited/Unobtainable: No Constitutional: Reports: no symptoms Respiratory: Reports: no symptoms Gastrointestinal/Abdominal: Reports: no symptoms Genitourinary: Reports: no symptoms Skin: Reports: rash Musculoskeletal: Reports: pain, other - shoulder, legs Allergies: Coded Allergies: PENICILLINS (Verified Allergy, Severe, Rash, 03/29/14) SULFA (SULFONAMIDE ANTIBIOTICS) (Unverified Allergy, Intermediate, 03/30/14 ) VANCOMYCIN (Verified Allergy, Intermediate, 03/30/14) Objective Vital Signs Last 24 Hour Vital Signs Date Time Temp Pulse Resp B/P (MAP) Pulse Ox O2 Delivery O2 Flow Rate FiO2 01/18/20 09:53 97.6 01/18/20 09:24 77 119/76 01/18/20 09:00 Room Air 01/18/20 08:00 97.6 77 21 119/76 (90) 97 01/18/20 08:00 91 01/18/20 04:00 94 01/18/20 04:00 98.1 96 20 120/86 (97) 94 01/18/20 00:00 89 01/18/20 00:00 97.7 92 20 130/77 (94) 94 01/17/20 21:00 Room Air 01/17/20 20:57 101 122/67 01/17/20 20:00 96.1 101 20 122/67 (85) 97 01/17/20 20:00 101 01/17/20 16:00 97.6 82 20 93/53 (66) 98 01/17/20 16:00 101 01/17/20 12:00 97.7 96 20 110/73 (85) 96 01/17/20 12:00 97.9 88 20 92/63 (73) 93 01/17/20 12:00 101 Height (Feet): 6 Height (Inches): 0.00 Weight (Pounds): 296 General Appearance: no acute distress HEENT: mucous membranes moist Respiratory/Chest: lungs clear Cardiovascular: normal rate Extremities: other - dependent edema Skin: rash, other - erythematous rash more in lower extremities Microbiology Date/Time Source Procedure Growth Status 01/16/20 15:45 Indwelling Cath Urine Culture - Preliminary NO GROWTH AFTER 24 HOURS Resulted Current Medications Medications (Trade) Dose Ordered Sig/Vicky Route PRN Reason Start Time Stop Time Status Last Admin Dose Admin Acetaminophen (Tylenol) 650 mg Q4H PRN ORAL Mild Pain/Temp > 100.5 01/15/20 14:00 02/14/20 13:59 01/16/20 03:14 Aspirin (ASA) 81 mg DAILY ORAL 01/16/20 17:30 03/01/20 17:29 01/18/20 09:24 Atorvastatin Calcium (Lipitor) 20 mg BEDTIME ORAL 01/16/20 21:00 02/15/20 20:59 01/17/20 20:56 Aztreonam 1 gm/ Dextrose 55 ml @ 110 mls/hr Q8HR IVPB 01/18/20 14:00 01/25/20 13:59 Baclofen (Lioresal) 10 mg THREE TIMES A DAY ORAL 01/15/20 18:00 02/14/20 17:59 01/18/20 09:24 Bisacodyl (Dulcolax) 10 mg DAILY ORAL 01/16/20 20:00 02/15/20 19:59 01/18/20 09:21 Diphenhydramine HCl (Benadryl) 25 mg Q4H PRN ORAL Itching 01/18/20 09:30 02/17/20 09:29 01/18/20 09:42 Docusate Sodium (Colace) 100 mg THREE TIMES A DAY ORAL 01/16/20 18:00 02/15/20 17:59 01/17/20 09:16 Enoxaparin Sodium (Lovenox) 40 mg DAILY SUBQ 01/17/20 09:00 02/16/20 08:59 01/18/20 09:25 Folic Acid (Folate) 2 mg DAILY ORAL 01/17/20 10:15 02/16/20 10:14 01/18/20 09:23 Gabapentin (Neurontin) 600 mg THREE TIMES A DAY ORAL 01/15/20 18:00 02/14/20 17:59 01/18/20 09:24 Guaifenesin/ Dextromethorphan (Robitussin DM Syrup) 10 ml Q4H PRN ORAL For Cough 01/18/20 09:30 02/17/20 09:29 01/18/20 09:42 Metoprolol Tartrate (Lopressor) 12.5 mg Q12HR ORAL 01/16/20 21:00 02/15/20 20:59 01/18/20 09:24 Pantoprazole (Protonix) 40 mg EVERY 12 HOURS ORAL 01/16/20 21:00 02/15/20 20:59 01/18/20 09:21 Pregabalin (Lyrica) 25 mg THREE TIMES A DAY ORAL 01/15/20 18:00 02/14/20 17:59 01/18/20 09:23 Sennosides (Senokot) 8.6 mg DAILY ORAL 01/17/20 09:00 02/16/20 08:59 01/18/20 09:24 Sd Ponce MD Jan 18, 2020 12:00
--- NOTE | 2020-01-18 12:58 | Nephrology Progress Note ---
Assessment/Plan Problem List: (1) Proteinuria (2) MS (multiple sclerosis) (3) Tachycardia (4) Leukocytosis (5) Fatty liver (6) Elevated troponin I level (7) Chronic indwelling Valadez catheter Assessment Proteinuria and hypoalbuminemia , will rule out nephrotic syndrome Obese with BMI of 35.9 Multiple sclerosis Chronic Valadez catheter Multiple drug allergies to vancomycin sulfa and penicillin History of hepatic hemangioma Fatty liver Chronic pain History of thrombocytopenia Elevated troponin I Plan Obtain 24-hour urine for total protein. Collection is in process results note- unremarkable Correct electrolytes. Per cardiology advice Monitor liver function tests, TSH Per orders Subjective ROS Limited/Unobtainable: No Constitutional: Reports: malaise Objective Objective Last 24 Hour Vital Signs Date Time Temp Pulse Resp B/P (MAP) Pulse Ox O2 Delivery O2 Flow Rate FiO2 01/18/20 12:07 Room Air 01/18/20 12:00 98.7 92 21 110/76 (87) 97 01/18/20 12:00 94 01/18/20 09:53 97.6 01/18/20 09:24 77 119/76 01/18/20 09:00 Room Air 01/18/20 08:00 97.6 77 21 119/76 (90) 97 01/18/20 08:00 91 01/18/20 04:00 94 01/18/20 04:00 98.1 96 20 120/86 (97) 94 01/18/20 00:00 89 01/18/20 00:00 97.7 92 20 130/77 (94) 94 01/17/20 21:00 Room Air 01/17/20 20:57 101 122/67 01/17/20 20:00 96.1 101 20 122/67 (85) 97 01/17/20 20:00 101 01/17/20 16:00 97.6 82 20 93/53 (66) 98 01/17/20 16:00 101 Intake and Output 01/17/20 01/18/20 19:00 07:00 Intake Total 800 ml 295 ml Output Total 1300 ml 1500 ml Balance -500 ml -1205 ml Intake Oral 800 ml 240 ml IV Total 55 ml Output Urine Total 1300 ml 1500 ml # Bowel Movements 4 Height (Feet): 6 Height (Inches): 0.00 Weight (Pounds): 296 General Appearance: no apparent distress Cardiovascular: normal rate Respiratory/Chest: decreased breath sounds Abdomen: soft Objective no change Tom Guillaume MD Jan 18, 2020 12:58
[2020-01-18] MEDS: Aztreonam Inj 1 GM in D5W 55 ML IVPB SCH ×2 (14:25→21:48)
[2020-01-18 16:00] VITALS: BP 103/69
[2020-01-18 20:00] VITALS: BP 120/82
[2020-01-18] MEDS: Atorvastatin 20mg tab ORAL SCH (21:47)
[2020-01-19] VITALS: BP 136/88
--- NOTE | 2020-01-19 00:09 | Initial Psychiatric Evaluation ---
Psychiatry Consultation Psychiatry Consultation Chief Complaint: General Complaint Allergies: Coded Allergies: CEFEPIME (Verified Allergy, Severe, Rash, 01/18/20) PENICILLINS (Verified Allergy, Severe, Rash, 03/29/14) SULFA (SULFONAMIDE ANTIBIOTICS) (Unverified Allergy, Intermediate, 03/30/14 ) VANCOMYCIN (Verified Allergy, Intermediate, 03/30/14) Medication History Scheduled Baclofen* (Baclofen*), 10 MG ORAL THREE TIMES A DAY, (Reported) Dalfampridine (Ampyra), 10 MG PO BID, (Reported) Gabapentin* (Gabapentin*), 600 MG ORAL THREE TIMES A DAY, (Reported) Tolterodine Tartrate (Detrol La), 4 MG ORAL DAILY, (Reported) Miscellaneous Medications Pregabalin (Lyrica), (Reported) Discontinued Medications Gabapentin* (Neurontin*), 600 TID, (Reported) Discontinued Reason: Pt stopped taking med Hydrocodone Bit/Acetaminophen 10-325* (Hydrocodon-Acetaminophn 10-325*), PRN, ( Reported) Discontinued Reason: Pt stopped taking med Methenamine Hippurate (Methenamine Hippurate), (Reported) Discontinued Reason: Pt stopped taking med Omeprazole (Omeprazole), (Reported) Discontinued Reason: Pt stopped taking med Objective Data Height (Feet): 6 Height (Inches): 0.00 Weight (Pounds): 296 Taya Guzman MD Jan 19, 2020 00:09
[2020-01-19 04:00] VITALS: BP 126/80
[2020-01-19] MEDS: Aztreonam Inj 1 GM in D5W 55 ML IVPB SCH (06:28)
[2020-01-19 06:33] LABS: BASOPHILS % (AUTO) 1.4 % (0.0-2.0); EOSINOPHILS % (AUTO) 10.2 % (0.0-3.0); HEMOGLOBIN 15.4 G/DL (14.2-18.0); MEAN CORPUSCULAR VOLUME 87 FL (80-99); MONOCYTES % (AUTO) 7.9 % (1.0-10.0); NEUTROPHILS % (AUTO) 61.5 % (45.0-75.0); PLATELET COUNT 182 K/UL (150-450); RED BLOOD COUNT 5.04 M/UL (4.70-6.10); RED CELL DISTRIBUTION WIDTH 11.7 % (11.6-14.8); WHITE BLOOD COUNT 9.9 K/UL (4.8-10.8)
[2020-01-19 08:00] VITALS: BP 129/89
--- NOTE | 2020-01-19 09:09 | Hematology/Onc Progress Note ---
Assessment/Plan Assessment/Plan Assessment/Plan # Leukopenia -- multiple etiologies could be related to underlying liver disease , medication-induced, infection versus viral syndrome, has hepatosplenomegaly+ --> peripheral smear has been ordered and does not show significant abnormalities --> Medications have been reviewed --> Continue to monitor for improvement, trend cbc --> Hep panel and HIV have been ordered--> NEG --> US abd ordered to r/o cirrhosis and hepatosplenomegaly --> shows hsm++ --> reverse isolation if ANC is <2000 --> Give neupogen if ANC <1000 (WAS GIVEN x1 dose) --> wbc 2-->17-->16-->9 # History of thrombocytopenia --> now has improved, plt is at nml range # Transaminitis --> with elevated ggt, likely related to liver disease --> trend as needed # Proteinuria and hypoalbuminemia , will rule out nephrotic syndrome --> per cards # Obese with BMI of 35.9 --> recommend lifestyle changes # Multiple sclerosis --> as per neuro # Elevated trop --> downtrended --> as per cards # Chronic Valadez catheter # Multiple drug allergies to vancomycin sulfa and penicillin # History of hepatic hemangioma # Fatty liver # Chronic pain The timing of this note does not necessarily reflect the time of the patient was seen. Greatly appreciate consultation. Subjective Constitutional: Denies: no symptoms, chills, fever, malaise, weakness, other HEENT: Denies: no symptoms, eye pain, blurred vision, tearing, double vision, ear pain, ear discharge, nose pain, nose congestion, throat pain, throat swelling, mouth pain, mouth swelling, other Cardiovascular: Denies: no symptoms, chest pain, edema, irregular heart rate, lightheadedness, palpitations, syncope, other Respiratory: Denies: no symptoms, cough, shortness of breath, SOB with excertion, SOB at rest, sputum, wheezing, other Gastrointestinal/Abdominal: Denies: no symptoms, abdomen distended, abdominal pain, black stools, tarry stools, blood in stool, constipated, diarrhea, difficulty swallowing, nausea, poor appetite, poor fluid intake, rectal bleeding , vomiting, other Genitourinary: Denies: no symptoms, burning, discharge, frequency, flank pain, hematuria, incontinence, pain, urgency, other Neurologic/Psychiatric: Denies: no symptoms, anxiety, depressed, emotional problems, headache, numbness, paresthesia, pre-existing deficit, seizure, tingling, tremors, weakness, other Endocrine: Denies: no symptoms, excessive sweating, flushing, intolerance to cold, intolerance to heat, increased hunger, increased thirst, increased urine, unexplained weight gain, unexplained weight loss, other Allergies: Coded Allergies: CEFEPIME (Verified Allergy, Severe, Rash, 01/18/20) PENICILLINS (Verified Allergy, Severe, Rash, 03/29/14) SULFA (SULFONAMIDE ANTIBIOTICS) (Unverified Allergy, Intermediate, 03/30/14 ) VANCOMYCIN (Verified Allergy, Intermediate, 03/30/14) Subjective 01/16: no events, labs noted, no bleeding or chills, trop downtrending, cbc pending 01/17: remains on cefepime, without complaints, no bleeding or chills, labs noted 01/18: no bleeding, no night sweats, plabs improved, ggt remains elevated Objective Objective Current Medications Medications (Trade) Dose Ordered Sig/Vicky Route PRN Reason Start Time Stop Time Status Last Admin Dose Admin Acetaminophen (Tylenol) 650 mg Q4H PRN ORAL Mild Pain/Temp > 100.5 01/15/20 14:00 02/14/20 13:59 01/16/20 03:14 Aspirin (ASA) 81 mg DAILY ORAL 01/16/20 17:30 03/01/20 17:29 01/18/20 09:24 Atorvastatin Calcium (Lipitor) 20 mg BEDTIME ORAL 01/16/20 21:00 02/15/20 20:59 01/18/20 21:47 Aztreonam 1 gm/ Dextrose 55 ml @ 110 mls/hr Q8HR IVPB 01/18/20 14:00 01/25/20 13:59 01/19/20 06:28 Baclofen (Lioresal) 10 mg THREE TIMES A DAY ORAL 01/15/20 18:00 02/14/20 17:59 01/18/20 18:12 Bisacodyl (Dulcolax) 10 mg DAILY ORAL 01/16/20 20:00 02/15/20 19:59 01/18/20 09:21 Diphenhydramine HCl (Benadryl) 25 mg Q4H PRN ORAL Itching 01/18/20 09:30 02/17/20 09:29 01/18/20 09:42 Docusate Sodium (Colace) 100 mg THREE TIMES A DAY ORAL 01/16/20 18:00 02/15/20 17:59 01/17/20 09:16 Enoxaparin Sodium (Lovenox) 40 mg DAILY SUBQ 01/17/20 09:00 02/16/20 08:59 01/18/20 09:25 Folic Acid (Folate) 2 mg DAILY ORAL 01/17/20 10:15 02/16/20 10:14 01/18/20 09:23 Gabapentin (Neurontin) 600 mg THREE TIMES A DAY ORAL 01/15/20 18:00 02/14/20 17:59 01/18/20 18:12 Guaifenesin/ Dextromethorphan (Robitussin DM Syrup) 10 ml Q4H PRN ORAL For Cough 01/18/20 09:30 02/17/20 09:29 01/18/20 09:42 Metoprolol Tartrate (Lopressor) 12.5 mg Q12HR ORAL 01/16/20 21:00 02/15/20 20:59 01/18/20 21:47 Pantoprazole (Protonix) 40 mg EVERY 12 HOURS ORAL 01/16/20 21:00 02/15/20 20:59 01/18/20 21:48 Pregabalin (Lyrica) 25 mg THREE TIMES A DAY ORAL 01/15/20 18:00 02/14/20 17:59 01/18/20 18:13 Sennosides (Senokot) 8.6 mg DAILY ORAL 01/17/20 09:00 02/16/20 08:59 01/18/20 09:24 Last 24 Hour Vital Signs Date Time Temp Pulse Resp B/P (MAP) Pulse Ox O2 Delivery O2 Flow Rate FiO2 01/19/20 04:00 85 01/19/20 04:00 98.1 83 20 126/80 (95) 94 01/19/20 00:00 84 01/19/20 00:00 97.9 86 20 136/88 (104) 97 01/18/20 21:47 106 120/82 01/18/20 21:00 Room Air 01/18/20 20:00 97.7 104 20 120/82 (95) 95 01/18/20 20:00 106 01/18/20 18:43 97.0 01/18/20 16:00 97.0 90 19 103/69 (80) 98 01/18/20 16:00 94 01/18/20 12:07 Room Air 01/18/20 12:00 98.7 92 21 110/76 (87) 97 01/18/20 12:00 94 01/18/20 09:24 77 119/76 01/18/20 09:00 Room Air 01/18/20 08:00 97.6 77 21 119/76 (90) 97 01/18/20 08:00 91 01/18/20 04:00 94 01/18/20 04:00 98.1 96 20 120/86 (97) 94 01/18/20 00:00 89 01/18/20 00:00 97.7 92 20 130/77 (94) 94 01/17/20 21:00 Room Air 01/17/20 20:57 101 122/67 01/17/20 20:00 96.1 101 20 122/67 (85) 97 01/17/20 20:00 101 01/17/20 16:00 97.6 82 20 93/53 (66) 98 01/17/20 16:00 101 01/17/20 12:00 97.7 96 20 110/73 (85) 96 01/17/20 12:00 97.9 88 20 92/63 (73) 93 01/17/20 12:00 101 01/17/20 09:16 103 114/45 Intake and Output 01/18/20 01/19/20 19:00 07:00 Intake Total 1015 ml 2150 ml Output Total 400 ml 3100 ml Balance 615 ml -950 ml Intake Oral 960 ml IV Total 55 ml Other 2150 ml Output Urine Total 400 ml 3100 ml # Voids 1 Labs Test 01/16/20 15:45 01/16/20 19:00 01/17/20 05:44 01/19/20 05:23 Urine Opiates Screen Negative (NEGATIVE) Urine Barbiturates Screen Negative (NEGATIVE) Phencyclidine (PCP) Screen Negative (NEGATIVE) Urine Amphetamines Screen Negative (NEGATIVE) Urine Benzodiazepines Screen Negative (NEGATIVE) Urine Cocaine Screen Negative (NEGATIVE) Urine Marijuana (THC) Screen Negative (NEGATIVE) Urine Collection Time 24 HRS Urine Total Volume 5450 ML Urine Total Protein mg/dL 8 mg/dL Urine Total Protein 24 Hour 8.1 mg/24hr (< 150) White Blood Count 17.3 K/UL (4.8-10.8) 9.9 K/UL (4.8-10.8) Red Blood Count 4.92 M/UL (4.70-6.10) 5.04 M/UL (4.70-6.10) Hemoglobin 14.9 G/DL (14.2-18.0) 15.4 G/DL (14.2-18.0) Hematocrit 42.5 % (42.0-52.0) 44.0 % (42.0-52.0) Mean Corpuscular Volume 86 FL (80-99) 87 FL (80-99) Mean Corpuscular Hemoglobin 30.3 PG (27.0-31.0) 30.6 PG (27.0-31.0) Mean Corpuscular Hemoglobin Concent 35.0 G/DL (32.0-36.0) 35.1 G/DL (32.0-36.0) Red Cell Distribution Width 11.8 % (11.6-14.8) 11.7 % (11.6-14.8) Platelet Count 151 K/UL (150-450) 182 K/UL (150-450) Mean Platelet Volume 7.4 FL (6.5-10.1) 6.6 FL (6.5-10.1) Neutrophils (%) (Auto) % (45.0-75.0) 61.5 % (45.0-75.0) Lymphocytes (%) (Auto) % (20.0-45.0) 19.0 % (20.0-45.0) Monocytes (%) (Auto) % (1.0-10.0) 7.9 % (1.0-10.0) Eosinophils (%) (Auto) % (0.0-3.0) 10.2 % (0.0-3.0) Basophils (%) (Auto) % (0.0-2.0) 1.4 % (0.0-2.0) Differential Total Cells Counted 100 Neutrophils % (Manual) 88 % (45-75) Lymphocytes % (Manual) 7 % (20-45) Monocytes % (Manual) 4 % (1-10) Eosinophils % (Manual) 1 % (0-3) Basophils % (Manual) 0 % (0-2) Band Neutrophils 0 % (0-8) Platelet Estimate Adequate Platelet Morphology Normal Red Blood Cell Morphology Normal Sodium Level 138 MMOL/L (136-145) Potassium Level 3.3 MMOL/L (3.5-5.1) Chloride Level 102 MMOL/L (98-107) Carbon Dioxide Level 23 MMOL/L (21-32) Anion Gap 13 mmol/L (5-15) Blood Urea Nitrogen 10 mg/dL (7-18) Creatinine 0.9 MG/DL (0.55-1.30) Estimat Glomerular Filtration Rate > 60 mL/min (>60) Glucose Level 78 MG/DL (74-106) Uric Acid 6.8 MG/DL (2.6-7.2) Calcium Level 8.7 MG/DL (8.5-10.1) Phosphorus Level 2.4 MG/DL (2.5-4.9) Magnesium Level 2.0 MG/DL (1.8-2.4) Total Bilirubin 1.1 MG/DL (0.2-1.0) Direct Bilirubin 0.6 MG/DL (0.0-0.3) Gamma Glutamyl Transpeptidase 150 U/L (5-85) Aspartate Amino Transf (AST/SGOT) 86 U/L (15-37) Alanine Aminotransferase (ALT/SGPT) 66 U/L (12-78) Alkaline Phosphatase 95 U/L (46-116) Troponin I 0.004 ng/mL (0.000-0.056) C-Reactive Protein, Quantitative 26.8 mg/dL (0.00-0.90) Pro-B-Type Natriuretic Peptide 167 pg/mL (0-125) Total Protein 6.5 G/DL (6.4-8.2) Albumin 2.6 G/DL (3.4-5.0) Globulin 3.9 g/dL Albumin/Globulin Ratio 0.7 (1.0-2.7) Triglycerides Level 177 MG/DL (30-150) Cholesterol Level 164 MG/DL (< 200) LDL Cholesterol 96 mg/dL (<100) HDL Cholesterol 28 MG/DL (40-60) Cholesterol/HDL Ratio 5.9 (3.3-4.4) Vitamin B12 Level 543 PG/ML (193-986) Folate 5.6 NG/ML (8.6-58.9) Thyroid Stimulating Hormone (TSH) 2.467 uiU/mL (0.358-3.740) Free Thyroxine 1.55 NG/DL (0.76-1.46) Height (Feet): 6 Height (Inches): 0.00 Weight (Pounds): 296 Objective Physical Exam: Vitals: reviewed General: NAD HEENT: nc, at Neck: supple Chest: clear breath sounds bilaterally Cardiovascular: RRR, no s3, s4 Abdomen: soft, nontender, nd Extremities: no cce, normal range of motion, upper ext contracted Neuro: alert and oriented Casey Roberts MD Jan 19, 2020 09:09
[2020-01-19] MEDS: Aspirin Baby 81mg ORAL SCH (09:40)
[2020-01-19] MEDS: Docusate 100mg cap ORAL SCH ×3 (09:40→17:16)
[2020-01-19] MEDS: Metoprolol Tartrate 12.5mg TAB ORAL SCH ×2 (09:42→21:16)
[2020-01-19] MEDS: Enoxaparin 40mg Inj SUBQ SCH (09:42)
[2020-01-19] MEDS: Bisacodyl EC 5mg tab ORAL SCH (09:42)
[2020-01-19] MEDS: Sennosides 8.6mg tab ORAL SCH (09:42)
[2020-01-19] MEDS: Lyrica 25mg cap ORAL SCH ×3 (09:42→17:16)
--- NOTE | 2020-01-19 09:42 | Infectious Diseases Prog Note ---
Assessment/Plan Assessment/Plan IMPRESSION: Serratia & Klebsiella sepsis, ?UTI. Cholelithiasis Acute renal failure that is Multiple sclerosis, Hepatosplenomegaly. Non ST elevation RI Rash likely allergy to Cefepime RECOMMENDATION: change Azactam to Levaquin Subjective ROS Limited/Unobtainable: No HEENT: Reports: no symptoms Respiratory: Reports: no symptoms Cardiovascular: Reports: no symptoms Gastrointestinal/Abdominal: Reports: no symptoms Skin: Reports: rash Allergies: Coded Allergies: CEFEPIME (Verified Allergy, Severe, Rash, 01/18/20) PENICILLINS (Verified Allergy, Severe, Rash, 03/29/14) SULFA (SULFONAMIDE ANTIBIOTICS) (Unverified Allergy, Intermediate, 03/30/14 ) VANCOMYCIN (Verified Allergy, Intermediate, 03/30/14) Objective Vital Signs Last 24 Hour Vital Signs Date Time Temp Pulse Resp B/P (MAP) Pulse Ox O2 Delivery O2 Flow Rate FiO2 01/19/20 08:00 96.7 84 19 129/89 (102) 98 01/19/20 04:00 85 01/19/20 04:00 98.1 83 20 126/80 (95) 94 01/19/20 00:00 84 01/19/20 00:00 97.9 86 20 136/88 (104) 97 01/18/20 21:47 106 120/82 01/18/20 21:00 Room Air 01/18/20 20:00 97.7 104 20 120/82 (95) 95 01/18/20 20:00 106 01/18/20 18:43 97.0 01/18/20 16:00 97.0 90 19 103/69 (80) 98 01/18/20 16:00 94 01/18/20 12:07 Room Air 01/18/20 12:00 98.7 92 21 110/76 (87) 97 01/18/20 12:00 94 Height (Feet): 6 Height (Inches): 0.00 Weight (Pounds): 296 General Appearance: no acute distress HEENT: mucous membranes moist Respiratory/Chest: lungs clear Cardiovascular: normal rate Abdomen: soft, non tender Genitourinary: other - Valadez catheter Extremities: no edema Neurologic/Psychiatric: alert, oriented x 3, responsive Microbiology Date/Time Source Procedure Growth Status 01/16/20 15:45 Indwelling Cath Urine Culture - Final NO GROWTH AFTER 48 HOURS Complete Laboratory Tests Test 01/19/20 05:23 White Blood Count 9.9 K/UL (4.8-10.8) Red Blood Count 5.04 M/UL (4.70-6.10) Hemoglobin 15.4 G/DL (14.2-18.0) Hematocrit 44.0 % (42.0-52.0) Mean Corpuscular Volume 87 FL (80-99) Mean Corpuscular Hemoglobin 30.6 PG (27.0-31.0) Mean Corpuscular Hemoglobin Concent 35.1 G/DL (32.0-36.0) Red Cell Distribution Width 11.7 % (11.6-14.8) Platelet Count 182 K/UL (150-450) Mean Platelet Volume 6.6 FL (6.5-10.1) Neutrophils (%) (Auto) 61.5 % (45.0-75.0) Lymphocytes (%) (Auto) 19.0 % (20.0-45.0) L Monocytes (%) (Auto) 7.9 % (1.0-10.0) Eosinophils (%) (Auto) 10.2 % (0.0-3.0) H Basophils (%) (Auto) 1.4 % (0.0-2.0) Current Medications Medications (Trade) Dose Ordered Sig/Vicky Route PRN Reason Start Time Stop Time Status Last Admin Dose Admin Acetaminophen (Tylenol) 650 mg Q4H PRN ORAL Mild Pain/Temp > 100.5 01/15/20 14:00 02/14/20 13:59 01/16/20 03:14 Aspirin (ASA) 81 mg DAILY ORAL 01/16/20 17:30 03/01/20 17:29 01/18/20 09:24 Atorvastatin Calcium (Lipitor) 20 mg BEDTIME ORAL 01/16/20 21:00 02/15/20 20:59 01/18/20 21:47 Aztreonam 1 gm/ Dextrose 55 ml @ 110 mls/hr Q8HR IVPB 01/18/20 14:00 01/25/20 13:59 01/19/20 06:28 Baclofen (Lioresal) 10 mg THREE TIMES A DAY ORAL 01/15/20 18:00 02/14/20 17:59 01/18/20 18:12 Bisacodyl (Dulcolax) 10 mg DAILY ORAL 01/16/20 20:00 02/15/20 19:59 01/18/20 09:21 Diphenhydramine HCl (Benadryl) 25 mg Q4H PRN ORAL Itching 01/18/20 09:30 02/17/20 09:29 01/18/20 09:42 Docusate Sodium (Colace) 100 mg THREE TIMES A DAY ORAL 01/16/20 18:00 02/15/20 17:59 01/17/20 09:16 Enoxaparin Sodium (Lovenox) 40 mg DAILY SUBQ 01/17/20 09:00 02/16/20 08:59 01/18/20 09:25 Folic Acid (Folate) 2 mg DAILY ORAL 01/17/20 10:15 02/16/20 10:14 01/18/20 09:23 Gabapentin (Neurontin) 600 mg THREE TIMES A DAY ORAL 01/15/20 18:00 02/14/20 17:59 01/18/20 18:12 Guaifenesin/ Dextromethorphan (Robitussin DM Syrup) 10 ml Q4H PRN ORAL For Cough 01/18/20 09:30 02/17/20 09:29 01/18/20 09:42 Metoprolol Tartrate (Lopressor) 12.5 mg Q12HR ORAL 01/16/20 21:00 02/15/20 20:59 01/18/20 21:47 Pantoprazole (Protonix) 40 mg EVERY 12 HOURS ORAL 01/16/20 21:00 02/15/20 20:59 01/18/20 21:48 Pregabalin (Lyrica) 25 mg THREE TIMES A DAY ORAL 01/15/20 18:00 02/14/20 17:59 01/18/20 18:13 Sennosides (Senokot) 8.6 mg DAILY ORAL 01/17/20 09:00 02/16/20 08:59 01/18/20 09:24 Sd Ponce MD Jan 19, 2020 09:42
[2020-01-19 12:00] VITALS: BP 141/96
--- NOTE | 2020-01-19 15:26 | Cardiac Electrophysiology PN ---
Assessment/Plan Assessment/Plan 1. Non-ST elevation myocardial infarction with three elevated troponins. Last Troponin negative. Likely demand ischemia. Denies any chest pain. Continue aspirin, metoprolol 12.5 bid, and statin. EF 65%. 2. Hypertension. On Metoprolol 3. Multiple sclerosis. 4. Gram negative Sepsis and positive blood cultures, on iv Abx per Dr. Sd Ponce 5. Left leg cellulitis. YOVANY RN Subjective Subjective Alert in NAD. No CP. On iv Abx for positive blood culture Objective Last 24 Hour Vital Signs Date Time Temp Pulse Resp B/P (MAP) Pulse Ox O2 Delivery O2 Flow Rate FiO2 01/19/20 12:55 96.7 01/19/20 12:00 86 01/19/20 12:00 96.4 84 19 141/96 (111) 98 01/19/20 09:42 84 129/89 01/19/20 09:00 Room Air 01/19/20 08:00 89 01/19/20 08:00 96.7 84 19 129/89 (102) 98 01/19/20 04:00 85 01/19/20 04:00 98.1 83 20 126/80 (95) 94 01/19/20 00:00 84 01/19/20 00:00 97.9 86 20 136/88 (104) 97 01/18/20 21:47 106 120/82 01/18/20 21:00 Room Air 01/18/20 20:00 97.7 104 20 120/82 (95) 95 01/18/20 20:00 106 01/18/20 16:00 97.0 90 19 103/69 (80) 98 01/18/20 16:00 94 Intake and Output 01/18/20 01/19/20 19:00 07:00 Intake Total 1015 ml 2150 ml Output Total 400 ml 3100 ml Balance 615 ml -950 ml Intake Oral 960 ml IV Total 55 ml Other 2150 ml Output Urine Total 400 ml 3100 ml # Voids 1 Laboratory Tests Test 01/19/20 05:23 White Blood Count 9.9 K/UL (4.8-10.8) Red Blood Count 5.04 M/UL (4.70-6.10) Hemoglobin 15.4 G/DL (14.2-18.0) Hematocrit 44.0 % (42.0-52.0) Mean Corpuscular Volume 87 FL (80-99) Mean Corpuscular Hemoglobin 30.6 PG (27.0-31.0) Mean Corpuscular Hemoglobin Concent 35.1 G/DL (32.0-36.0) Red Cell Distribution Width 11.7 % (11.6-14.8) Platelet Count 182 K/UL (150-450) Mean Platelet Volume 6.6 FL (6.5-10.1) Neutrophils (%) (Auto) 61.5 % (45.0-75.0) Lymphocytes (%) (Auto) 19.0 % (20.0-45.0) L Monocytes (%) (Auto) 7.9 % (1.0-10.0) Eosinophils (%) (Auto) 10.2 % (0.0-3.0) H Basophils (%) (Auto) 1.4 % (0.0-2.0) Microbiology Date/Time Source Procedure Growth Status 01/16/20 15:45 Indwelling Cath Urine Culture - Final NO GROWTH AFTER 48 HOURS Complete Objective HEAD AND NECK: No JVD. LUNGS: Clear. CARDIOVASCULAR: Regular S1 and S2 with no gallop or murmur. ABDOMEN: Soft. EXTREMITIES: 1+ pitting edema. His right arm is paralyzed. Delonte Torres MD Jan 19, 2020 15:26
--- NOTE | 2020-01-19 15:36 | Nephrology Progress Note ---
Assessment/Plan Problem List: (1) Proteinuria (2) MS (multiple sclerosis) (3) Tachycardia (4) Leukocytosis (5) Fatty liver (6) Elevated troponin I level (7) Chronic indwelling Valadez catheter Assessment Proteinuria and hypoalbuminemia , will rule out nephrotic syndrome Obese with BMI of 35.9 Multiple sclerosis Chronic Valadez catheter Multiple drug allergies to vancomycin sulfa and penicillin History of hepatic hemangioma Fatty liver Chronic pain History of thrombocytopenia Elevated troponin I Plan Obtain 24-hour urine for total protein. Collection is in process results note- unremarkable Correct electrolytes. Per cardiology advice Monitor liver function tests, TSH Per orders Subjective ROS Limited/Unobtainable: No Constitutional: Reports: malaise Objective Objective Last 24 Hour Vital Signs Date Time Temp Pulse Resp B/P (MAP) Pulse Ox O2 Delivery O2 Flow Rate FiO2 01/19/20 12:55 96.7 01/19/20 12:00 86 01/19/20 12:00 96.4 84 19 141/96 (111) 98 01/19/20 09:42 84 129/89 01/19/20 09:00 Room Air 01/19/20 08:00 89 01/19/20 08:00 96.7 84 19 129/89 (102) 98 01/19/20 04:00 85 01/19/20 04:00 98.1 83 20 126/80 (95) 94 01/19/20 00:00 84 01/19/20 00:00 97.9 86 20 136/88 (104) 97 01/18/20 21:47 106 120/82 01/18/20 21:00 Room Air 01/18/20 20:00 97.7 104 20 120/82 (95) 95 01/18/20 20:00 106 01/18/20 16:00 97.0 90 19 103/69 (80) 98 01/18/20 16:00 94 Intake and Output 01/18/20 01/19/20 19:00 07:00 Intake Total 1015 ml 2150 ml Output Total 400 ml 3100 ml Balance 615 ml -950 ml Intake Oral 960 ml IV Total 55 ml Other 2150 ml Output Urine Total 400 ml 3100 ml # Voids 1 Laboratory Tests 01/19/20 05:23: White Blood Count 9.9, Red Blood Count 5.04, Hemoglobin 15.4, Hematocrit 44.0, Mean Corpuscular Volume 87, Mean Corpuscular Hemoglobin 30.6, Mean Corpuscular Hemoglobin Concent 35.1, Red Cell Distribution Width 11.7, Platelet Count 182, Mean Platelet Volume 6.6, Neutrophils (%) (Auto) 61.5, Lymphocytes (%) (Auto) 19.0L, Monocytes (%) (Auto) 7.9, Eosinophils (%) (Auto) 10.2H, Basophils (%) ( Auto) 1.4 Height (Feet): 6 Height (Inches): 0.00 Weight (Pounds): 296 General Appearance: no apparent distress Cardiovascular: normal rate Respiratory/Chest: decreased breath sounds Abdomen: soft Objective no change Tom Guillaume MD Jan 19, 2020 15:36
[2020-01-19 16:00] VITALS: BP 120/80
[2020-01-19 20:00] VITALS: BP 128/75
--- NOTE | 2020-01-19 20:49 | General Progress Note ---
Assessment/Plan Problem List: (1) MS (multiple sclerosis) ICD Codes: G35 - MS (multiple sclerosis) SNOMED: 66485856 (2) Leukocytosis ICD Codes: D72.829 - Leukocytosis SNOMED: 831746590 (3) Generalized weakness ICD Codes: R53.1 - Generalized weakness SNOMED: 98415066 (4) Fatty liver ICD Codes: K76.0 - Fatty liver SNOMED: 514778198 (5) Tachycardia ICD Codes: R00.0 - Tachycardia, unspecified SNOMED: 3900590 (6) Severe dehydration ICD Codes: E86.0 - Dehydration SNOMED: 297863902 (7) Cellulitis of left leg ICD Codes: L03.116 - Cellulitis of left leg SNOMED: 873697774 Status: progressing Assessment/Plan: persistent leukocytosis improved drug rash cellulitis of lower extremity needs snf for iv abx sepsis Subjective ROS Limited/Unobtainable: Yes Allergies: Coded Allergies: CEFEPIME (Verified Allergy, Severe, Rash, 01/18/20) PENICILLINS (Verified Allergy, Severe, Rash, 03/29/14) SULFA (SULFONAMIDE ANTIBIOTICS) (Unverified Allergy, Intermediate, 03/30/14 ) VANCOMYCIN (Verified Allergy, Intermediate, 03/30/14) Objective Last 24 Hour Vital Signs Date Time Temp Pulse Resp B/P (MAP) Pulse Ox O2 Delivery O2 Flow Rate FiO2 01/19/20 17:46 98.1 01/19/20 16:00 98.1 85 19 120/80 (93) 98 01/19/20 16:00 90 01/19/20 12:00 86 01/19/20 12:00 96.4 84 19 141/96 (111) 98 01/19/20 09:42 84 129/89 01/19/20 09:00 Room Air 01/19/20 08:00 89 01/19/20 08:00 96.7 84 19 129/89 (102) 98 01/19/20 04:00 85 01/19/20 04:00 98.1 83 20 126/80 (95) 94 01/19/20 00:00 84 01/19/20 00:00 97.9 86 20 136/88 (104) 97 01/18/20 21:47 106 120/82 01/18/20 21:00 Room Air Intake and Output 01/18/20 01/19/20 19:00 07:00 Intake Total 1015 ml 2205 ml Output Total 400 ml 3100 ml Balance 615 ml -895 ml Intake Oral 960 ml IV Total 55 ml 55 ml Other 2150 ml Output Urine Total 400 ml 3100 ml # Voids 1 Laboratory Tests 01/19/20 05:23: White Blood Count 9.9, Red Blood Count 5.04, Hemoglobin 15.4, Hematocrit 44.0, Mean Corpuscular Volume 87, Mean Corpuscular Hemoglobin 30.6, Mean Corpuscular Hemoglobin Concent 35.1, Red Cell Distribution Width 11.7, Platelet Count 182, Mean Platelet Volume 6.6, Neutrophils (%) (Auto) 61.5, Lymphocytes (%) (Auto) 19.0L, Monocytes (%) (Auto) 7.9, Eosinophils (%) (Auto) 10.2H, Basophils (%) ( Auto) 1.4 Height (Feet): 6 Height (Inches): 0.00 Weight (Pounds): 296 Whitney Fontanez MD Jan 19, 2020 20:49
[2020-01-19] MEDS: Atorvastatin 20mg tab ORAL SCH (21:16)
[2020-01-20] VITALS: BP 125/92
--- NOTE | 2020-01-20 00:30 | Progress Note ---
DATE: 01/19/2020 SUBJECTIVE: The patient is withdrawn, presents with depressed mood, low energy, anhedonia, worthlessness, and hopelessness. The patient stated that he is always feeling hot. MENTAL STATUS EXAMINATION: The patient is alert, oriented times self, place, and situation. Mood is depressed. Affect is constricted, congruent with mood. Thought process is linear and goal oriented. Thought content, there is no suicidal or homicidal ideation. Cognition is intact. Insight and judgment is fair. PLAN: 1. Provide the patient with reality orientation and supportive therapy. 2. Prozac. 3. Continue to follow and readjust the medications. Taya Guzman M.D. DR: RADHA JOB#: [id number] CC:
[2020-01-20 04:00] VITALS: BP 121/90
--- NOTE | 2020-01-20 07:40 | Hematology/Onc Progress Note ---
Assessment/Plan Assessment/Plan Assessment/Plan # Leukopenia -- multiple etiologies could be related to underlying liver disease , medication-induced, infection versus viral syndrome, has hepatosplenomegaly+ --> peripheral smear has been ordered and does not show significant abnormalities --> Medications have been reviewed --> Continue to monitor for improvement, trend cbc --> Hep panel and HIV have been ordered--> NEG --> US abd ordered to r/o cirrhosis and hepatosplenomegaly --> shows hsm++ --> reverse isolation if ANC is <2000 --> Give neupogen if ANC <1000 (WAS GIVEN x1 dose) --> wbc 2-->17-->16-->9 --> abx: levaquin # History of thrombocytopenia --> now has improved, plt is at nml range # Transaminitis --> with elevated ggt, likely related to liver disease --> trend as needed # Proteinuria and hypoalbuminemia , will rule out nephrotic syndrome --> per cards # Obese with BMI of 35.9 --> recommend lifestyle changes # Multiple sclerosis --> as per neuro # Elevated trop --> downtrended --> as per cards # Chronic Valadez catheter # Multiple drug allergies to vancomycin sulfa and penicillin # History of hepatic hemangioma # Fatty liver # Chronic pain The timing of this note does not necessarily reflect the time of the patient was seen. Greatly appreciate consultation. Subjective Allergies: Coded Allergies: CEFEPIME (Verified Allergy, Severe, Rash, 01/18/20) PENICILLINS (Verified Allergy, Severe, Rash, 03/29/14) SULFA (SULFONAMIDE ANTIBIOTICS) (Unverified Allergy, Intermediate, 03/30/14 ) VANCOMYCIN (Verified Allergy, Intermediate, 03/30/14) Subjective 01/16: no events, labs noted, no bleeding or chills, trop downtrending, cbc pending 01/17: remains on cefepime, without complaints, no bleeding or chills, labs noted 01/18: no bleeding, no night sweats, plabs improved, ggt remains elevated 01/19: no acute events, on tele, labs pending, on levaquin, no sob Objective Objective Current Medications Medications (Trade) Dose Ordered Sig/Vicky Route PRN Reason Start Time Stop Time Status Last Admin Dose Admin Acetaminophen (Tylenol) 650 mg Q4H PRN ORAL Mild Pain/Temp > 100.5 01/15/20 14:00 02/14/20 13:59 01/16/20 03:14 Aspirin (ASA) 81 mg DAILY ORAL 01/16/20 17:30 03/01/20 17:29 01/19/20 09:40 Atorvastatin Calcium (Lipitor) 20 mg BEDTIME ORAL 01/16/20 21:00 02/15/20 20:59 01/19/20 21:16 Baclofen (Lioresal) 10 mg THREE TIMES A DAY ORAL 01/15/20 18:00 02/14/20 17:59 01/19/20 17:16 Bisacodyl (Dulcolax) 10 mg DAILY ORAL 01/16/20 20:00 02/15/20 19:59 01/19/20 09:42 Diphenhydramine HCl (Benadryl) 25 mg Q4H PRN ORAL Itching 01/18/20 09:30 02/17/20 09:29 01/18/20 09:42 Docusate Sodium (Colace) 100 mg THREE TIMES A DAY ORAL 01/16/20 18:00 02/15/20 17:59 01/19/20 17:16 Enoxaparin Sodium (Lovenox) 40 mg DAILY SUBQ 01/17/20 09:00 02/16/20 08:59 01/19/20 09:42 Fluoxetine HCl (PROzac) 20 mg DAILY ORAL 01/20/20 09:00 02/19/20 08:59 Folic Acid (Folate) 2 mg DAILY ORAL 01/17/20 10:15 02/16/20 10:14 01/19/20 09:42 Gabapentin (Neurontin) 600 mg THREE TIMES A DAY ORAL 01/15/20 18:00 02/14/20 17:59 01/19/20 17:16 Guaifenesin/ Dextromethorphan (Robitussin DM Syrup) 10 ml Q4H PRN ORAL For Cough 01/18/20 09:30 02/17/20 09:29 01/18/20 09:42 Levofloxacin 150 ml @ 100 mls/hr Q24H IVPB 01/19/20 11:00 01/26/20 10:59 01/19/20 11:54 Metoprolol Tartrate (Lopressor) 12.5 mg Q12HR ORAL 01/16/20 21:00 02/15/20 20:59 01/19/20 21:16 Pantoprazole (Protonix) 40 mg EVERY 12 HOURS ORAL 01/16/20 21:00 02/15/20 20:59 01/19/20 21:16 Pregabalin (Lyrica) 25 mg THREE TIMES A DAY ORAL 01/15/20 18:00 02/14/20 17:59 01/19/20 17:16 Sennosides (Senokot) 8.6 mg DAILY ORAL 01/17/20 09:00 02/16/20 08:59 01/19/20 09:42 Last 24 Hour Vital Signs Date Time Temp Pulse Resp B/P (MAP) Pulse Ox O2 Delivery O2 Flow Rate FiO2 01/20/20 04:00 80 01/20/20 04:00 98.1 76 19 121/90 (100) 97 01/20/20 00:00 79 01/20/20 00:00 97.9 72 19 125/92 (103) 96 01/19/20 21:16 94 128/75 01/19/20 21:00 Room Air 01/19/20 20:00 97.7 94 18 128/75 (92) 94 01/19/20 20:00 92 01/19/20 17:46 98.1 01/19/20 16:00 98.1 85 19 120/80 (93) 98 01/19/20 16:00 90 01/19/20 12:00 86 01/19/20 12:00 96.4 84 19 141/96 (111) 98 01/19/20 09:42 84 129/89 01/19/20 09:00 Room Air 01/19/20 08:00 89 01/19/20 08:00 96.7 84 19 129/89 (102) 98 01/19/20 04:00 85 01/19/20 04:00 98.1 83 20 126/80 (95) 94 01/19/20 00:00 84 01/19/20 00:00 97.9 86 20 136/88 (104) 97 01/18/20 21:47 106 120/82 01/18/20 21:00 Room Air 01/18/20 20:00 97.7 104 20 120/82 (95) 95 01/18/20 20:00 106 01/18/20 16:00 97.0 90 19 103/69 (80) 98 01/18/20 16:00 94 01/18/20 12:07 Room Air 01/18/20 12:00 98.7 92 21 110/76 (87) 97 01/18/20 12:00 94 01/18/20 09:24 77 119/76 01/18/20 09:00 Room Air 01/18/20 08:00 97.6 77 21 119/76 (90) 97 01/18/20 08:00 91 Intake and Output 01/19/20 01/20/20 19:00 07:00 Intake Total 290 ml Output Total 1400 ml Balance -1110 ml Intake Oral 140 ml IV Total 150 ml Output Urine Total 1400 ml # Voids 3 # Bowel Movements 1 Labs Test 01/19/20 05:23 White Blood Count 9.9 K/UL (4.8-10.8) Red Blood Count 5.04 M/UL (4.70-6.10) Hemoglobin 15.4 G/DL (14.2-18.0) Hematocrit 44.0 % (42.0-52.0) Mean Corpuscular Volume 87 FL (80-99) Mean Corpuscular Hemoglobin 30.6 PG (27.0-31.0) Mean Corpuscular Hemoglobin Concent 35.1 G/DL (32.0-36.0) Red Cell Distribution Width 11.7 % (11.6-14.8) Platelet Count 182 K/UL (150-450) Mean Platelet Volume 6.6 FL (6.5-10.1) Neutrophils (%) (Auto) 61.5 % (45.0-75.0) Lymphocytes (%) (Auto) 19.0 % (20.0-45.0) Monocytes (%) (Auto) 7.9 % (1.0-10.0) Eosinophils (%) (Auto) 10.2 % (0.0-3.0) Basophils (%) (Auto) 1.4 % (0.0-2.0) Height (Feet): 6 Height (Inches): 0.00 Weight (Pounds): 296 Objective Physical Exam: Vitals: reviewed General: NAD HEENT: nc, at Neck: supple Chest: clear breath sounds bilaterally Cardiovascular: RRR, no s3, s4 Abdomen: soft, nontender, nd Extremities: no cce, normal range of motion, upper ext contracted Neuro: alert and oriented Casey Roberts MD Jan 20, 2020 07:40
[2020-01-20 08:00] VITALS: BP 136/88
--- NOTE | 2020-01-20 08:53 | Nephrology Progress Note ---
Assessment/Plan Problem List: (1) Proteinuria (2) MS (multiple sclerosis) (3) Tachycardia (4) Leukocytosis (5) Fatty liver (6) Elevated troponin I level (7) Chronic indwelling Valadez catheter Assessment Proteinuria and hypoalbuminemia , will rule out nephrotic syndrome Obese with BMI of 35.9 Multiple sclerosis Chronic Valadez catheter Multiple drug allergies to vancomycin sulfa and penicillin History of hepatic hemangioma Fatty liver Chronic pain History of thrombocytopenia Elevated troponin I Plan Obtain 24-hour urine for total protein. Collection is in process results note- unremarkable Correct electrolytes. Per cardiology advice Monitor liver function tests, TSH Per orders Subjective ROS Limited/Unobtainable: No Constitutional: Reports: malaise Objective Objective Last 24 Hour Vital Signs Date Time Temp Pulse Resp B/P (MAP) Pulse Ox O2 Delivery O2 Flow Rate FiO2 01/20/20 08:00 97.7 85 19 136/88 (104) 96 01/20/20 04:00 80 01/20/20 04:00 98.1 76 19 121/90 (100) 97 01/20/20 00:00 79 01/20/20 00:00 97.9 72 19 125/92 (103) 96 01/19/20 21:16 94 128/75 01/19/20 21:00 Room Air 01/19/20 20:00 97.7 94 18 128/75 (92) 94 01/19/20 20:00 92 01/19/20 17:46 98.1 01/19/20 16:00 98.1 85 19 120/80 (93) 98 01/19/20 16:00 90 01/19/20 12:00 86 01/19/20 12:00 96.4 84 19 141/96 (111) 98 01/19/20 09:42 84 129/89 01/19/20 09:00 Room Air Intake and Output 01/19/20 01/20/20 18:59 06:59 Intake Total 345 ml Output Total 1400 ml Balance -1055 ml Intake Oral 140 ml IV Total 205 ml Output Urine Total 1400 ml # Voids 3 # Bowel Movements 1 No labs today Height (Feet): 6 Height (Inches): 0.00 Weight (Pounds): 296 General Appearance: no apparent distress Objective no change Tom Guillaume MD Jan 20, 2020 08:53
[2020-01-20] MEDS: Docusate 100mg cap ORAL SCH (09:00)
[2020-01-20] MEDS: Sennosides 8.6mg tab ORAL SCH (09:00)
[2020-01-20] MEDS: Bisacodyl EC 5mg tab ORAL SCH (09:00)
[2020-01-20 09:42] VITALS: BP 136/88
[2020-01-20] MEDS: Metoprolol Tartrate 12.5mg TAB ORAL SCH (09:42)
[2020-01-20] MEDS: Lyrica 25mg cap ORAL SCH ×2 (09:43→13:26)
[2020-01-20] MEDS: Aspirin Baby 81mg ORAL SCH (09:44)
[2020-01-20] MEDS: Enoxaparin 40mg Inj SUBQ SCH (09:49)
--- NOTE | 2020-01-20 10:06 | Infectious Diseases Prog Note ---
Assessment/Plan Assessment/Plan IMPRESSION: Serratia & Klebsiella sepsis, ?UTI. Cholelithiasis Acute renal failure that is Multiple sclerosis, Hepatosplenomegaly. Non ST elevation [place] Rash likely allergy to Cefepime RECOMMENDATION: continue Levaquin Agree with transfer to SNF Case was D/W primary MD Subjective ROS Limited/Unobtainable: No Respiratory: Reports: no symptoms Gastrointestinal/Abdominal: Reports: no symptoms Genitourinary: Reports: no symptoms Musculoskeletal: Reports: no symptoms Allergies: Coded Allergies: CEFEPIME (Verified Allergy, Severe, Rash, 01/18/20) PENICILLINS (Verified Allergy, Severe, Rash, 03/29/14) SULFA (SULFONAMIDE ANTIBIOTICS) (Unverified Allergy, Intermediate, 03/30/14 ) VANCOMYCIN (Verified Allergy, Intermediate, 03/30/14) Objective Vital Signs Last 24 Hour Vital Signs Date Time Temp Pulse Resp B/P (MAP) Pulse Ox O2 Delivery O2 Flow Rate FiO2 01/20/20 09:42 85 136/88 01/20/20 08:00 97.7 85 19 136/88 (104) 96 01/20/20 04:00 80 01/20/20 04:00 98.1 76 19 121/90 (100) 97 01/20/20 00:00 79 01/20/20 00:00 97.9 72 19 125/92 (103) 96 01/19/20 21:16 94 128/75 01/19/20 21:00 Room Air 01/19/20 20:00 97.7 94 18 128/75 (92) 94 01/19/20 20:00 92 01/19/20 17:46 98.1 01/19/20 16:00 98.1 85 19 120/80 (93) 98 01/19/20 16:00 90 01/19/20 12:00 86 01/19/20 12:00 96.4 84 19 141/96 (111) 98 Height (Feet): 6 Height (Inches): 0.00 Weight (Pounds): 296 General Appearance: no acute distress, other - obese Respiratory/Chest: lungs clear Cardiovascular: normal rate Abdomen: soft, non tender Extremities: no edema Skin: rash, other - decreasing Neurologic/Psychiatric: alert, oriented x 3, responsive Current Medications Medications (Trade) Dose Ordered Sig/Vicky Route PRN Reason Start Time Stop Time Status Last Admin Dose Admin Acetaminophen (Tylenol) 650 mg Q4H PRN ORAL Mild Pain/Temp > 100.5 01/15/20 14:00 02/14/20 13:59 01/16/20 03:14 Aspirin (ASA) 81 mg DAILY ORAL 01/16/20 17:30 03/01/20 17:29 01/20/20 09:44 Atorvastatin Calcium (Lipitor) 20 mg BEDTIME ORAL 01/16/20 21:00 02/15/20 20:59 01/19/20 21:16 Baclofen (Lioresal) 10 mg THREE TIMES A DAY ORAL 01/15/20 18:00 02/14/20 17:59 01/20/20 09:44 Bisacodyl (Dulcolax) 10 mg DAILY ORAL 01/16/20 20:00 02/15/20 19:59 01/19/20 09:42 Diphenhydramine HCl (Benadryl) 25 mg Q4H PRN ORAL Itching 01/18/20 09:30 02/17/20 09:29 01/18/20 09:42 Docusate Sodium (Colace) 100 mg THREE TIMES A DAY ORAL 01/16/20 18:00 02/15/20 17:59 01/19/20 17:16 Enoxaparin Sodium (Lovenox) 40 mg DAILY SUBQ 01/17/20 09:00 02/16/20 08:59 01/20/20 09:49 Fluoxetine HCl (PROzac) 20 mg DAILY ORAL 01/20/20 09:00 02/19/20 08:59 01/20/20 09:43 Folic Acid (Folate) 2 mg DAILY ORAL 01/17/20 10:15 02/16/20 10:14 01/20/20 09:42 Gabapentin (Neurontin) 600 mg THREE TIMES A DAY ORAL 01/15/20 18:00 02/14/20 17:59 01/20/20 09:42 Guaifenesin/ Dextromethorphan (Robitussin DM Syrup) 10 ml Q4H PRN ORAL For Cough 01/18/20 09:30 02/17/20 09:29 01/18/20 09:42 Levofloxacin 150 ml @ 100 mls/hr Q24H IVPB 01/19/20 11:00 01/26/20 10:59 01/19/20 11:54 Metoprolol Tartrate (Lopressor) 12.5 mg Q12HR ORAL 01/16/20 21:00 02/15/20 20:59 01/20/20 09:42 Pantoprazole (Protonix) 40 mg EVERY 12 HOURS ORAL 01/16/20 21:00 02/15/20 20:59 01/20/20 09:43 Pregabalin (Lyrica) 25 mg THREE TIMES A DAY ORAL 01/15/20 18:00 02/14/20 17:59 01/20/20 09:43 Sennosides (Senokot) 8.6 mg DAILY ORAL 01/17/20 09:00 02/16/20 08:59 01/19/20 09:42 Sd Ponce MD Jan 20, 2020 10:06
[2020-01-20 10:14] LABS: BASOPHILS % (AUTO) 1.6 % (0.0-2.0); EOSINOPHILS % (AUTO) 9.8 % (0.0-3.0); HEMATOCRIT 43.2 % (42.0-52.0); LYMPHOCYTES % (AUTO) 20.2 % (20.0-45.0); MEAN CORPUSCULAR VOLUME 86 FL (80-99); MONOCYTES % (AUTO) 8.9 % (1.0-10.0); NEUTROPHILS % (AUTO) 59.6 % (45.0-75.0); PLATELET COUNT 206 K/UL (150-450); RED BLOOD COUNT 5.01 M/UL (4.70-6.10); RED CELL DISTRIBUTION WIDTH 11.6 % (11.6-14.8); WHITE BLOOD COUNT 9.6 K/UL (4.8-10.8)
[2020-01-20] MEDS ORDERED: LEVOFLOXAC750 MG/150 IVPB (10:14)
[2020-01-20 10:51] LABS: ALANINE AMINOTRANSFERASE 235 U/L (12-78); ALBUMIN 2.9 G/DL (3.4-5.0); ALBUMIN/GLOBULIN RATIO 0.6 (1.0-2.7); ALKALINE PHOSPHATASE 127 U/L (46-116); ANION GAP 14 mmol/L (5-15); ASPARTATE AMINO TRANSFERASE 280 U/L (15-37); BILIRUBIN,TOTAL 0.4 MG/DL (0.2-1.0); BLOOD UREA NITROGEN 9 mg/dL (7-18); CALCIUM 8.8 MG/DL (8.5-10.1); CARBON DIOXIDE 21 MMOL/L (21-32); CHLORIDE 106 MMOL/L (98-107); CREATININE 0.8 MG/DL (0.55-1.30); PHOSPHORUS 3.6 MG/DL (2.5-4.9); POTASSIUM 3.7 MMOL/L (3.5-5.1); SODIUM 141 MMOL/L (136-145)
--- NOTE | 2020-01-21 01:31 | Psych Consult Progress Note ---
Psychiatry Progress Note Psychiatry Progress Note Subjective 01/20/20 Neurological/Psychiatric: Reports: anxiety, depressed, emotional problems Allergies: Coded Allergies: CEFEPIME (Verified Allergy, Severe, Rash, 01/18/20) PENICILLINS (Verified Allergy, Severe, Rash, 03/29/14) SULFA (SULFONAMIDE ANTIBIOTICS) (Unverified Allergy, Intermediate, 03/30/14 ) VANCOMYCIN (Verified Allergy, Intermediate, 03/30/14) Objective Data Height (Feet): 6 Height (Inches): 0.00 Weight (Pounds): 296 General Appearance: no apparent distress, alert Additional Comments: alert, oriented times self, place, and situation. Mood is depressed. Affect is constricted, congruent with mood. Thought process is linear and goal oriented. Thought content, there is no suicidal or homicidal ideation. Cognition is intact. Insight and judgment is fair. PLAN: 1. Provide the patient with reality orientation and supportive therapy. 2. Prozac. 3. Continue to follow and readjust the medications. Assessment/Plan Status: progressing Taya Guzman MD Jan 21, 2020 01:31
--- NOTE | 2020-01-22 15:26 | Discharge Summary ---
Discharge Summary Discharge Summary _ DATE OF ADMISSION: 01/15/2020 DATE OF DISCHARGE: 01/20/2020 DISCHARGED BY: Dr. Whitney Watkins CONSULTANTS: Dr. Taya Torres BRIEF HOSPITAL COURSE: The patient is a 49-year-old male who presented by EMS from [facility] due to a fall from a commode. Patient apparently was attempting to use the commode , fell to the floor and was complaining of pain to the left hip. He has a chronic indwelling Valadez catheter. It was pulled out at the time of the fall. He denied any nausea, vomiting or fever. Patient was tachycardic on arrival to ED. He stated he has been unable to eat for the past 3 days. He was also complaining of muscle spasms in his upper extremity. He denied cough. Denied any recent hospital admission. Upon evaluation in ED, blood pressure was 155, heart rate 142. He was febrile with temperature of 104. Patient appeared dehydrated on exam. He stated he has not been able to eat for the past 2 days. He had generalized weakness. Blood work showed WBC 2.1. Hemoglobin and hematocrit were stable. Electrolytes were normal. Creatinine was elevated to 1.5. Lactic acid elevated to 5.3. Troponin elevated to 0.068. Urinalysis showed 4+ protein, 4+ blood, too numerous to count urine RBC, negative leukocyte esterase, 0-2 urine WBC. EKG showed sinus tachycardia with no ST elevation. Chest x-ray showed no obvious infiltrate. He was given Tylenol and cooling measures. Cultures were sent. Cardiac improved with IV hydration and antipyretics. He was admitted to telemetry for further evaluation. ID was consulted. Blood culture was showing gram-negative rods. Influenza a and B were negative. He was given cefepime. He was given a dose of Levaquin. Cardiac evaluation was done. Twelve-lead EKG showed tachycardia at 146 bpm. Troponin was elevated, however has come down. Patient did not have any chest pain. He was treated medically with aspirin, metoprolol and statin. Echocardiogram showed EF 65% He had proteinuria and hypoalbuminemia. 24-hour total protein He presented with leukopenia. [employer] was consulted. Peripheral smear did not show any significant abnormalities. HIV were negative. Abdominal ultrasound showed hepatosplenomegaly. Blood culture showed growth of Serratia and Klebsiella. He developed generalized body rash, possibly allergy to cefepime. Cefepime was changed to Azactam The patient presented with depressed mood, low energy, anhedonia, worthlessness and hopelessness. He was seen by a psychiatrist. He was provided with reality orientation and supportive therapy. He was continued on Prozac. Urine culture did not isolate any growth. He was eventually cleared for discharge. FINAL DIAGNOSES: Serratia and Klebsiella sepsis Possible UTI Cholelithiasis Acute kidney injury Multiple sclerosis Hepatosplenomegaly Non-ST elevation [place]. Rash likely cefepime allergy Fatty liver Elevated troponin level 1 Chronic indwelling Valadez catheter Multiple sclerosis Obesity with BMI of 35.9 Proteinuria and hypoalbuminemia History of thrombocytopenia Vitamin D. DISPOSITION: Patient was discharged to a SNF. DISCHARGE MEDICATIONS: Refer to Discharge Medication List. I have been assigned to complete a discharge summary on this account, I was not involved with the patient's management.--ARTHUR Conde Jacqueline Robles NP Jan 22, 2020 15:26
== END 2020-01-20 14:41 | DRG 871 ==
LOC: EDUNIT# 08:45 → EDBD 08:45 → EMR 09:11 → 2E 10:10 → EDBEDREQ 12:36
DX: A41.53 Sepsis due to Serratia (principal); I21.4 Non-ST elevation (NSTEMI) myocardial infarction; N39.0 Urinary tract infection, site not specified; L03.116 Cellulitis of left lower limb; E86.0 Dehydration; G35 Multiple sclerosis; K76.0 Fatty (change of) liver, not elsewhere classified; E66.9 Obesity, unspecified; Z68.35 Body mass index [BMI] 35.0-35.9, adult; K80.20 Calculus of gallbladder without cholecystitis without obstruction; Z87.891 Personal history of nicotine dependence; Z88.0 Allergy status to penicillin; Z88.2 Allergy status to sulfonamides; Z91.81 History of falling; Z88.1 Allergy status to other antibiotic agents; L27.0 Generalized skin eruption due to drugs and medicaments taken internally; T36.1X5A Adverse effect of cephalosporins and other beta-lactam antibiotics, initial encounter; G89.29 Other chronic pain
CPT/HCPCS: 36415; 71045; 76700; 80048; 80053; 80061; 80076; 80307; 81003; 81050; 82248; 82550; 82607; 82746; 82977; 83036; 83605; 83735; 83880; 84100; 84156; 84165; 84439; 84443; 84484; 84550; 85007; 85025; 86140; 86703; 86710; 87040; 87081; 87086; 87181; 93005; 93306; 96361; 96365; 99291; J7030